=== PATIENT | male | born 1945 | race Caucasian/White ===

== ENCOUNTER 2016-08-26 01:47 | Inpatient (IN) | payer MEDICAID, OTHER ==
[~2016-08-26] VITALS: Ht 167.6 cm; Wt 71.2 kg
[2016-08-26] MEDS ORDERED: DICLOFENAC SODIUM 37.5 MG/ML VIAL IV STA (02:37)
[2016-08-26] MEDS ORDERED: CEFTRIAXONE 1 GM/50 ML (PMX) 50 ML IVPB STA (02:37)
[2016-08-26] MEDS ORDERED: VANCOMYCIN 1 GM (PMX) 250 ML IVPB ONE (03:00)
[2016-08-26] MEDS ORDERED: SOD CHLORIDE 0.9% 1,000 ML IV ONE ×2 (03:00→04:30)
[2016-08-26 03:41] LABS: BASOPHILS % 0.1 % (0.0-2.0); EOSINOPHILS % 0.1 % (0.0-7.0); HEMATOCRIT 34.6 % (42.0-52.0); HEMOGLOBIN 11.9 g/dl (14.0-18.0); LYMPHOCYTES # 0.8 10^3/ul (0.8-2.9); LYMPHOCYTES % 5.6 % (15.0-51.0); MEAN CORPUSCULAR HEMOGLOBIN 30.9 pg (29.0-33.0); MEAN CORPUSCULAR HGB CONC 34.5 g/dl (32.0-37.0); MEAN CORPUSCULAR VOLUME 89.5 fl (82.0-101.0); MONOCYTE # 1.1 10^3/ul (0.3-0.9); MONOCYTES % 7.3 % (0.0-11.0); NEUTROPHILS % 86.9 % (39.0-77.0); PLATELET COUNT 259 10^3/UL (140-440); RED BLOOD COUNT 3.87 10^6/ul (4.70-6.10); RED CELL DISTRIBUTION WIDTH 12.4 % (11.5-14.5); UNCORRECTED WBC 14.9 10^3/ul (4.8-10.8); WHITE BLOOD COUNT 14.9 10^3/ul (4.8-10.8)
[2016-08-26 03:44] LABS: CONDITION 1
[2016-08-26 03:45] VITALS: TEMP 98.3
[2016-08-26 03:45] LABS: ALBUMIN 4.1 g/dl (3.3-4.9); CHLORIDE 101 mmol/L (97-110); POTASSIUM 3.9 mmol/L (3.5-5.1); SODIUM 137 mmol/L (135-144)
[2016-08-26 03:46] LABS: INR 1.07; PARTIAL THROMBOPLASTIN TIME 33.6 Sec (25.0-35.0); PROTIME 13.9 Sec (12.2-14.2); PT RATIO 1.1
[2016-08-26 03:47] LABS: CREATININE 0.51 mg/dl (0.61-1.24)
[2016-08-26 03:48] LABS: ALANINE AMINOTRANSFERASE 23 IU/L (13-69); ALBUMIN/GLOBULIN RATIO 1.32; ALKALINE PHOSPHATASE 126 IU/L (42-121); ANION GAP 18 (8-16); ASPARTATE AMINO TRANSFERASE 18 IU/L (15-46); BILIRUBIN,INDIRECT 0.9 mg/dl (0-1.1); BILIRUBIN,TOTAL 0.9 mg/dl (0.2-1.3); BLOOD UREA NITROGEN 17 mg/dl (7-20); CALCIUM 8.7 mg/dl (8.4-10.2); CARBON DIOXIDE 22 mmol/L (21-31); GLUCOSE 292 mg/dl (70-220); TOTAL PROTEIN 7.2 g/dl (6.1-8.1)
[2016-08-26 04:01] LABS: TROPONIN-I < 0.012 ng/ml (0.00-0.12)
[2016-08-26] MEDS ORDERED: ONDANSETRON 4 MG INJ IV PRN (05:30)
[2016-08-26 05:45] VITALS: BP 157/68; PULSE 80; RESP 19; Ht 167.6 cm; Wt 71.2 kg
--- NOTE | 2016-08-26 06:47 | HP ---
Date/Time of Note Date/Time of Note DATE: 08/26/16 TIME: 06:43 Assessment/Plan VTE Prophylaxis VTE Prophylaxis Intervention: LMWH Assessment/Plan Assessment/Plan 70 yo M with 1. R knee cellulitis septic joint unlikely as no wound 2. DM type 2 uncontrolled 3. Nicotine dependence Tobacco cessation counselling done and will continue to be reinforced throughout hospitalization. PLAN: empiric abx / cultures / Ortho and ID consults Diabetic diet / SSI / resume home regimen if appropriate and tailor therapy while in-house. Further evaluation and treatment will be based on clinical course Full discussion with care team done. All questions Answered Please also see orders. Total time spent on this evaluation >35mins Prophylaxis: lovenox /pepcid HPI/ROS Admit Date/Time Admit Date/Time Aug 26, 2016 at 05:05 Hx of Present Illness PRESENTING COMPLAINT: R knee pain HISTORY OF PRESENTING COMPLAINT: 70 yo M with a hx of DM and chronic tobacco use who presents with R knee pain and swelling.He is at the point where he says he cannot comfortably walk. He denies any wounds to the area and stated that it actually started lower on his leg and started to spread upwards on the skin. He has no fevers or chills and states that he can put his weight on his leg fine without pain, but when he tries to bend the knee in any way, it hurts badly. He has had no trauma to the area. ROS 12 point review if systems was done and pertinent findings are as noted. PMH/Family/Social Past Medical History Medical History: diabetes Family History Significant Family History: diabetes Social History Alcohol Use: none Smoking Status: Current every day smoker Drug Use: none Exam/Review of Systems Vital Signs Vitals Vital Signs Date Time Temp Pulse Resp B/P Pulse Ox O2 Delivery O2 Flow Rate FiO2 08/26/16 03:45 98.3 82 20 152/69 98 Room Air Exam Constitutional: alert, oriented Psych: nl mood/affect Head: atraumatic, normocephalic Eyes: PERRL, No icteric ENMT: mucosa pink and moist Neck: supple Respiratory: clear to auscultation, normal air movement Cardiovascular: regular rate and rhythm, No murmurs/extra sounds Gastrointestinal: bowel sounds, non-tender, soft Genitourinary - Male: other (deffered) Musculoskeletal: joint tenderness (R knee), range of motion (reduced in R knee) , swelling (R knee) Neurological: nl mental status, nl speech, No focal weakness Labs Result Diagram: 08/26/1630408/26/16304 DANIELITO DUKE Aug 26, 2016 06:47
[2016-08-26] MEDS ORDERED: GLUCOSE GEL 15 GRAM TUBE BUCCAL PRN (07:00)
[2016-08-26] MEDS ORDERED: VANCOMYCIN IV PER PHARMACY XX SCH (07:00)
[2016-08-26] MEDS ORDERED: GLUCOSE GEL 15 GRAM TUBE PO PRN ×2 (07:00)
[2016-08-26] MEDS ORDERED: GLUCAGON 1 MG INJ IM PRN (07:00)
[2016-08-26] MEDS ORDERED: DEXTROSE 50% 50 ML SYRINGE IV PRN ×2 (07:00)
[2016-08-26] MEDS: INSULIN GLARGINE [LANtus] 3 ML PEN SC SCH (08:48)
[2016-08-26] MEDS: INSULIN ASPART [NOVOLOG] 3 ML PEN SC SCH ×7 (08:49→21:37)
[2016-08-26 09:27] LABS: ALBUMIN 4.2 g/dl (3.3-4.9)
[2016-08-26 09:29] LABS: BILIRUBIN,INDIRECT 0.7 mg/dl (0-1.1); BILIRUBIN,TOTAL 0.7 mg/dl (0.2-1.3)
[2016-08-26 09:30] LABS: CHOL/HDL RATIO 3.8 RATIO; MAGNESIUM 2.1 mg/dl (1.7-2.5); TOTAL PROTEIN 7.2 g/dl (6.1-8.1); URIC ACID 3.7 mg/dl (3.1-7.9)
[2016-08-26] MEDS ORDERED: KETOROLAC 30 MG INJ IV STA (10:15)
[2016-08-26 10:26] LABS: ADD UMIC NO; URINE BILIRUBIN (Dip) NEGATIVE (NEGATIVE); URINE BLOOD (Dip) NEGATIVE (NEGATIVE); URINE COLOR LT. YELLOW (YELLOW); URINE KETONES (Dip) TRACE (NEGATIVE); URINE LEUKOCYTE ESTERASE (Dip) NEGATIVE (NEGATIVE); URINE NITRITE (Dip) NEGATIVE (NEGATIVE); URINE TOTAL PROTEIN (Dip) NEGATIVE (NEGATIVE); URINE UROBILINOGEN (Dip) 1.0 E.U./dL (0.1-1.0)
[2016-08-26] MEDS ORDERED: traMADol 50 MG TAB PO ONE (10:30)
[2016-08-26] MEDS: VANCOMYCIN 1 GM in NS 250 ML IVPB SCH ×2 (12:09→23:15)
--- NOTE | 2016-08-26 13:46 | CONS ---
DATE OF ADMISSION: 08/26/2016 DATE OF CONSULTATION: 08/26/2016 CHIEF COMPLAINT: Right knee pain. HISTORY OF PRESENT ILLNESS: This is a 70-year-old male with history of type 2 uncontrolled diabetes who is complaining of several day history of right knee swelling and pain. He states that he has h ad increasing redness of his knee. He denies any recent infections, fevers or chills. He denies an y history of trauma. He has been able to ambulate with pain. He has no other complaints. PAST MEDICAL HISTORY: Type 2 diabetes. MEDICATIONS: Patient is unsure of his medications. PAST SURGICAL HISTORY: Denies any previous surgeries. SOCIAL HISTORY: The patient lives with his . He is a current tobacco user. He denies alcohol use. FAMILY HISTORY: Noncontributory. ALLERGIES: NO KNOWN DRUG ALLERGIES. REVIEW OF SYSTEMS: Negative except per HPI. VITAL SIGNS: Temperature 98.3, 152/69, 82 pulse with 20 respiratory rate. RIGHT KNEE: There is an effusion of the right knee. There is cellulitis over the right knee. Ther e are no open wounds. There is no drainage. He has pain with flexion. He has a nontender calf wit h a negative Homans. He has a palpable dorsalis pedis pulse. LABORATORY DATA: White blood cell count 14.9, neutrophils 86%. ESR 44, CRP pending. IMPRESSION: A 70-year-old diabetic male with right knee effusion and cellulitis. PLAN: The patient is currently on ceftriaxone and vancomycin. He is currently stable. At this freddy e CRP levels are pending. We will continue to monitor the patient. There is no indication for a se ptic joint at this time. No surgical intervention is indicated at this point. Dictated By: TRACEE GAMEZ/JENS Conf#: [id number] DID#: [id number]
--- NOTE | 2016-08-26 16:03 | RADRPT ---
PROCEDURE: XR bilateral knees. CLINICAL INDICATION: Knee pain /septic joint TECHNIQUE: AP, PA, lateral and sunrise views are available for review. COMPARISON: None available FINDINGS: Right knee: There is mild to moderate osteoarthrosis involving the right patellofemoral compartment . This is as sociated with joint space narrowing and osteophytosis. There is right prepatellar soft tissue swelli ng. Left knee: There is mild osteoarthrosis involving the left patellofemoral compartment. This is associated with joint osteophytosis. There is otherwise normal mineralization, architecture and alignment. No fractures are identified. No osseous lesions are identified. The soft tissues are unremarkable. IMPRESSION: Moderate osteoarthrosis involving the right patellofemoral compartment Right prepatellar soft tissue swelling Mild osteoarthrosis involving the left patellofemoral compartment. RPTAT: HGDB .Ranjan Spangler MD, MD Date Time Electronically viewed and signed by .Ranjan Spangler MD, on 08/26/2016 16:02 .B/
--- NOTE | 2016-08-26 16:40 | CONS ---
DATE OF ADMISSION: 08/26/2016 DATE OF CONSULTATION: 08/26/2016 TYPE OF CONSULTATION: Infectious disease. REASON FOR CONSULTATION: Antibiotic management. HISTORY OF PRESENT ILLNESS: Valeriy Mendoza is a 70-year-old male with a history of diabe wendi mellitus and chronic tobacco use, who presents to the emergency room with right knee pain and sw elling. Past problems, as noted, include diabetes mellitus and nicotine dependency. On admission h is white count was 14.9, H and H 11.9 and 34.6, platelet count 259,000. BUN and creatinine 17/0.5. Glucose of 292 random. The patient's hemoglobin A1c is 8.0. PAST MEDICAL HISTORY: Operations, none. FAMILY HISTORY: Noncontributory, except for diabetes. ALLERGIES: NONE TO PENICILLIN, SULFA OR FOODS. MEDICATIONS: Per chart. REVIEW OF SYSTEMS: As per HPI. PHYSICAL EXAMINATION: GENERAL: The patient is a well-developed, well-nourished male, alert, responsive, in no ac anahy distress. VITAL SIGNS: Stable. He is afebrile. SKIN: Without generalized rash. HEENT: Within normal limits. NECK: Supple. LYMPH NODES: None palpable. CHEST: Decreased breath sounds at the bases. HEART: Without murmur or gallop. ABDOMEN: Soft, nontender, without organosplenomegaly or masses. EXTREMITIES: He has joint tenderness of the right knee, with decreased range of motion. There is s welling of the right knee as well, with the significant cellulitis. RECTAL AND GENITAL EXAM: Deferred. NEUROLOGIC EVALUATION: No focal neurological abnormalities. IMPRESSION AND PLAN: The patient has cellulitis of the right knee, could have septic arthritis. We started him on vancomycin and ceftriaxone, and he was seen by orthopedics and will be taken to the OR in order to tap the knee, and probably irrigate the knee as well, to rule out septic arthritis. Will continue him on the current antibiotic therapy. Dictated By: JACOB PICHARDO MD, JD/JENS Conf#: [id number] DID#: [id number]
[2016-08-26 20:00] VITALS: BP 148/68; PULSE 89; RESP 20
[2016-08-26] MEDS: morphine 2 MG INJ IV PRN (20:49)
--- NOTE | 2016-08-26 21:30 | RADRPT ---
PROCEDURE: US DVT. CLINICAL INDICATION: Right lower extremity pain and swelling. TECHNIQUE: Multiple longitudinal and transverse images of the right lower extremity veins were obt ained with long scale and color Doppler imaging. 2D grayscale measurements with compression, color Doppler flow, and augmentation was performed. The calf veins were interrogated as well. COMPARISON: No prior studies are available for comparison. FINDINGS: The right common femoral, femoral and popliteal veins are normally compressible throughout. Color flow demonstrates normal filling of the vessel. Normal venous waveforms are visualized and there is normal response to augmentation. The calf veins are visualized and are unremarkable. IMPRESSION: 1. No evidence of a deep vein thrombosis involving the right lower extremity. RPTAT: HLDM .Amish Cam MD, MD Date Time Electronically viewed and signed by .Amish Cam MD, on 08/26/2016 21:30 .M/
[2016-08-27] MEDS: ACCUCHECK XX SCH (02:00)
[2016-08-27 06:59] LABS: BASOPHILS % 0.1 % (0.0-2.0); EOSINOPHILS % 0.1 % (0.0-7.0); HEMATOCRIT 31.4 % (42.0-52.0); HEMOGLOBIN 10.9 g/dl (14.0-18.0); LYMPHOCYTES # 0.7 10^3/ul (0.8-2.9); LYMPHOCYTES % 4.8 % (15.0-51.0); MEAN CORPUSCULAR HEMOGLOBIN 31.1 pg (29.0-33.0); MEAN CORPUSCULAR HGB CONC 34.6 g/dl (32.0-37.0); MEAN PLATELET VOLUME 7.5 fl (7.4-10.4); MONOCYTE # 1.3 10^3/ul (0.3-0.9); MONOCYTES % 9.2 % (0.0-11.0); NEUTROPHIL # 11.8 10^3/ul (1.6-7.5); NEUTROPHILS % 85.8 % (39.0-77.0); PLATELET COUNT 237 10^3/UL (140-440); RED BLOOD COUNT 3.49 10^6/ul (4.70-6.10); RED CELL DISTRIBUTION WIDTH 12.5 % (11.5-14.5); UNCORRECTED WBC 13.7 10^3/ul (4.8-10.8); WHITE BLOOD COUNT 13.7 10^3/ul (4.8-10.8)
[2016-08-27 07:09] LABS: POTASSIUM 3.7 mmol/L (3.5-5.1)
[2016-08-27 07:11] LABS: CREATININE 0.47 mg/dl (0.61-1.24)
[2016-08-27 07:12] LABS: CALCIUM 8.3 mg/dl (8.4-10.2)
[2016-08-27 07:14] LABS: IRON 16 ug/dl (35-150)
[2016-08-27 07:18] LABS: CONDITION 1
[2016-08-27 07:23] LABS: TOTAL IRON BINDING CAPACITY 265 ug/dl (241-421)
[2016-08-27 07:32] VITALS: BP 153/67; RESP 18
[2016-08-27] MEDS: INSULIN ASPART [NOVOLOG] 3 ML PEN SC SCH ×6 (08:14→21:00)
[2016-08-27] MEDS: INSULIN GLARGINE [LANtus] 3 ML PEN SC SCH (08:16)
[2016-08-27] MEDS: morphine 2 MG INJ IV PRN ×2 (08:17→19:00)
[2016-08-27] MEDS: VANCOMYCIN 1 GM in NS 250 ML IVPB SCH (12:09)
[2016-08-27] MEDS: SOD FERRIC GLUC COMPLX 125 MG in SOD CHLORIDE 0.9% 100 ML IVPB SCH (14:20)
[2016-08-27] MEDS ORDERED: LEVOFLOXACIN 750 MG TABLET ONE (15:45)
--- NOTE | 2016-08-27 16:54 | CONS ---
Date/Time of Note Date/Time of Note DATE: 08/27/16 TIME: 16:39 Assessment/Plan Assessment/Plan Chief Complaint/Hosp Course ID PROGRESS NOTE TOTAL ABX DAY # : 24H INTERVAL SUMMARY * Stable overnight - still with right knee pain * (-)DVT * X-ray IMPRESSION: Moderate osteoarthrosis involving the right patellofemoral compartment Right prepatellar soft tissue swelling Mild osteoarthrosis involving the left patellofemoral compartment. PHYSICAL EXAMINATION: GENERAL: 58 yo M HEENT: Unremarkable NECK: Supple, trachea midline. CHEST: Rise symmetrical. Breath sounds diminished to bases. HEART: Pulse RRR ABDOMEN: Soft, bowel tones present. EXTREMITIES: Right knee with edema/erythema/warm to touch SKIN: BLEXT vitiligo changes, hyperpigmentation bilateral knees acanthosis nigricans ID ASSESSMENT: 70 yo M 1. Acute R-Knee pain w/edema/erythema, x 3-4 days, denies trauma, skin intact = > Dx R knee cellulitis, w/effusion * DDx Pre-patellar bursitis w/Mild osteoarthrosis involving the left patellofemoral compartment. 2. SIRS w/low grade temps, leukocytosis, elevated CRP 7.7, ESR 44 due to #2 3. DM type 2 uncontrolled w/A1c 8% w/complication of 4. Nicotine dependence= (+)Tobacco CURRENT ABX: Vanco IV + Ceftriaxone ID RECOMMENDATIONS/PLAN: Seen by Ortho -> tap was considered; however appears no need for tap. Continue current ABX and await clinical improvement -> when Leukocytosis resolves, and knee improves will consider PO ABX Switch Tobacco cessation strongly advocated Check MRSA Nares screen . Problems: Consultation Date/Type/Reason Admit Date/Time Aug 26, 2016 at 05:05 Initial Consult Date Exam/Review of Systems Vital Signs Vitals Vital Signs Date Time Temp Pulse Resp B/P Pulse Ox O2 Delivery O2 Flow Rate FiO2 08/27/16 07:32 98.6 88 18 153/67 96 08/26/16 20:00 Room Air Intake and Output 08/26/16 08/26/16 08/27/16 15:00 23:00 07:00 Intake Total 250 ml 425 ml 610 ml Balance 250 ml 425 ml 610 ml Results Result Diagram: 08/27/16 0449 08/27/16 0449 Results 24 hrs Laboratory Tests Test 08/26/16 16:47 08/26/16 21:33 08/27/16 02:55 08/27/16 04:49 Bedside Glucose 151 208 194 Anion Gap 17 H Basophils # 0.0 Basophils % 0.1 Blood Urea Nitrogen 10 Calcium Level 8.3 L Carbon Dioxide Level 21 Chloride Level 100 Creatinine 0.47 L Eosinophils # 0.0 Eosinophils % 0.1 Ferritin 232.0 Glucose Level 184 # Hematocrit 31.4 L Hemoglobin 10.9 L Iron Level 16 L Lymphocytes # 0.7 L Lymphocytes % 4.8 L Mean Corpuscular Hemoglobin 31.1 Mean Corpuscular Hemoglobin Concent 34.6 Mean Corpuscular Volume 90.0 Mean Platelet Volume 7.5 Monocytes # 1.3 H Monocytes % 9.2 Neutrophils # 11.8 H Neutrophils % 85.8 H Nucleated Red Blood Cells # 0.0 Nucleated Red Blood Cells % 0.0 Percent Iron Saturation 6 L Platelet Count 237 Potassium Level 3.7 Red Blood Count 3.49 L Red Cell Distribution Width 12.5 Sodium Level 134 L Total Iron Binding Capacity 265 White Blood Count 13.7 H Test 08/27/16 07:47 08/27/16 12:02 08/27/16 16:20 Bedside Glucose 179 202 186 Medications Medications Current Medications Insulin Glargine (Lantus) 15 unit QAM SC Last administered on 08/27/16t 08:16; Admin Dose 15 UNIT; Start 08/26/16 at 09:00 Diagnostic Test (Pha) (Accucheck) 1 ea 02 XX ; Start 08/27/16 at 02:00 Miscellaneous Information 1 ea NOTE XX ; Start 08/26/16 at 07:00 Glucose (Glutose) 15 gm Q15M PRN PO DECREASED GLUCOSE; Start 08/26/16 at 07:00 Glucose (Glutose) 22.5 gm Q15M PRN PO DECREASED GLUCOSE; Start 08/26/16 at 07: 00 Dextrose (D50w Syringe) 25 ml Q15M PRN IV DECREASED GLUCOSE; Start 08/26/16 at 07:00 Dextrose (D50w Syringe) 50 ml Q15M PRN IV DECREASED GLUCOSE; Start 08/26/16 at 07:00 Glucagon (Glucagen) 1 mg Q15M PRN IM DECREASED GLUCOSE; Start 08/26/16 at 07: 00 Glucose 15 gm 15 gm Q15M PRN BUCCAL DECREASED GLUCOSE; Start 08/26/16 at 07:00 Vancomycin HCl (Vancocin) 250 ml @ 125 mls/hr Q12H IVPB Last administered on 12:09; Admin Dose 125 MLS/HR; Start 08/26/16 at 11:00 Morphine Sulfate 2 mg 2 mg Q4H PRN IV 8-10 Pain level Last administered on 08:17; Admin Dose 2 MG; Start 08/26/16 at 20:30 Ferric Sodium Gluconate Complex/ Sodium Chloride (Ferrlecit/NS) 110 ml @ 100 mls/hr Q24H IVPB Last administered on 08/27/16 14:20; Admin Dose 100 MLS/HR; Start 08/27/16 at 12:30; Stop 08/29/16 at 13:35 Lisinopril (Zestril) 5 mg DAILY PO ; Start 08/28/16 at 09:00 Enoxaparin Sodium (Lovenox) 40 mg DAILY SC ; Start 08/28/16 at 09:00 Famotidine (Pepcid) 20 mg BID PO ; Start 08/27/16 at 21:00 Miscellaneous Information (*Rx Drug Level Order Reminder*) VANCO TROUGH @ 2, 200 ON... ONCE ONCE XX ; Start 08/27/16 at 22:00; Stop 08/27/16 at 22:01 JOAN MEDINA NP Aug 27, 2016 16:49
[2016-08-27] MEDS: CEFTRIAXONE 1 GM/50 ML (PMX) 50 ML IVPB SCH (17:26)
--- NOTE | 2016-08-27 17:31 | QN ---
Documentation Job number: [id number] Comment Progress notes done. For unclear reasons, this is not showing up in [facility]. Medical records aware. OXANA GARCIA NP Aug 27, 2016 17:31
--- NOTE | 2016-08-27 18:10 | PN ---
DATE: 08/27/2016 TIME OF EVALUATION: 1210. SUBJECTIVE DATA: Complaints of right knee pain. Blood sugars slightly on the higher side. OBJECTIVE DATA: VITAL SIGNS: Temperature 98.6, pulse rate 80, respiratory rate 18, blood pressure 153/66, oxygen saturation 96% on room air. GENERAL: This is a well-built male sitting in a chair in no apparent distress. HEENT: Head normocephalic and atraumatic. Eyes: Anicteric sclerae. Conjunctivae clear. ENT: Nasal septum is midline. Oral mucosa is moist. NECK: Supple. No JVD noticed. RESPIRATORY: Bilaterally clear to auscultation. No adventitious breath sounds heard. No use of accessory muscles of respiration. CARDIAC: Regular rate and rhythm. No murmurs heard. ABDOMEN: Soft, nontender and nondistended. Bowel sounds positive in all 4 quadrants. GENITOURINARY: Deferred. EXTREMITIES: Right knee: Area of erythema with tenderness to touch. Bilateral lower extremity: Trace pedal pretibial and pedal edema. Peripheral pulses palpable. NEUROLOGIC: The patient is awake, alert and oriented. Cranial nerves are grossly intact. LABORATORY AND DIAGNOSTIC DATA: WBC 13.7, hemoglobin 10.9, hematocrit 31.4, platelet count 237. Sodium 134, potassium 3.7, chloride 100, carbon dioxide 20 , anion gap 17, BUN 10, creatinine 0.47, glucose 184, calcium 8.3. Iron 16, TIBC 265, iron saturation 14 to 32. ASSESSMENT AND PLAN: 1. Right knee cellulitis with possible underlying effusion within right knee joint. Continue antibiotics as per infectious diseases. Status post evaluation by orthopedic surgery. No surgical intervention as per orthopedic surgery. 2. Type 2 diabetes mellitus, uncontrolled. Hemoglobin A1c 8.3. Currently on sliding scale insulin along with basal insulin. Blood sugars fairly well controlled. 3. Nicotine use. Cessation advised. 4. Essential hypertension. Will start the patient on GAGAN inhibitors since the patient has underlying diabetes. 5. Normocytic normochromic anemia. Underlying iron deficiency. Will start the patient on iron supplements. 6. Fluid, electrolytes and nutrition. Continue carbohydrate controlled diet. 7. Deep venous thrombosis prophylaxis. Will start the patient on subcutaneous Lovenox. 8. Gastrointestinal prophylaxis. Will start the patient on histamine 2 receptor blockers. PLAN: 1. Continue on analgesics. 2. Continue blood sugar control. 3. Start iron supplements and started antihypertensives. Case discussed with Dr. Bergeron. OXANA BERGERON MD, AM/JENS Conf#: [id number] DID#: [id number] [id number]
--- NOTE | 2016-08-27 18:11 | PN ---
DATE: SUBJECTIVE: The patient is doing well. His pain is controlled. He denies any fevers or chills. Onur ness has no complaints today. OBJECTIVE: Right knee: There is cellulitis over the right knee, which is decreasing. He has minim al effusion. There is no active drainage. There is no fluctuance. VITAL SIGNS: 98.6, 88 pulse, 153/67, respiratory rate of 18. LABORATORY DATA: White blood cell count is 13.7, down from 14.9. ESR 44. CRP is 7. IMPRESSION: A 70-year-old male with history of uncontrolled diabetes and right knee cellulitis, imp roving with IV antibiotics. PLAN: The patient will continue to receive IV vancomycin and ceftriaxone. His physical examination has improved, as have his laboratory data. His pain is controlled. He has stable vital signs. He does not require surgical intervention. Dictated By: TRACEE GAMEZ/JENS Conf#: [id number] DID#: [id number]
[2016-08-27 20:18] VITALS: BP 113/53; RESP 24
[2016-08-27] MEDS: FAMOTIDINE 20 MG TAB PO SCH (20:44)
[2016-08-28] MEDS: VANCOMYCIN 1 GM in NS 250 ML IVPB SCH ×3 (00:59→19:13)
[2016-08-28] MEDS: ACCUCHECK XX SCH (02:00)
[2016-08-28 06:14] LABS: BASOPHILS % 0.1 % (0.0-2.0); EOSINOPHILS # 0.1 10^3/ul (0.0-0.5); EOSINOPHILS % 0.9 % (0.0-7.0); HEMATOCRIT 31.3 % (42.0-52.0); HEMOGLOBIN 10.8 g/dl (14.0-18.0); LYMPHOCYTES # 0.9 10^3/ul (0.8-2.9); LYMPHOCYTES % 8.7 % (15.0-51.0); MEAN CORPUSCULAR HEMOGLOBIN 31.3 pg (29.0-33.0); MEAN CORPUSCULAR HGB CONC 34.6 g/dl (32.0-37.0); MEAN CORPUSCULAR VOLUME 90.4 fl (82.0-101.0); MEAN PLATELET VOLUME 7.2 fl (7.4-10.4); MONOCYTE # 1.1 10^3/ul (0.3-0.9); MONOCYTES % 10.5 % (0.0-11.0); NEUTROPHIL # 8.4 10^3/ul (1.6-7.5); NEUTROPHILS % 79.8 % (39.0-77.0); PLATELET COUNT 257 10^3/UL (140-440); RED BLOOD COUNT 3.46 10^6/ul (4.70-6.10); RED CELL DISTRIBUTION WIDTH 12.1 % (11.5-14.5); UNCORRECTED WBC 10.6 10^3/ul (4.8-10.8); WHITE BLOOD COUNT 10.6 10^3/ul (4.8-10.8)
[2016-08-28 06:26] LABS: CONDITION 1
[2016-08-28 06:38] LABS: POTASSIUM 3.5 mmol/L (3.5-5.1)
[2016-08-28 06:40] LABS: CREATININE 0.49 mg/dl (0.61-1.24)
[2016-08-28 06:41] LABS: CALCIUM 8.1 mg/dl (8.4-10.2)
[2016-08-28 07:01] LABS: PHOSPHORUS 3.8 mg/dl (2.5-4.9)
[2016-08-28 08:03] VITALS: BP 135/75; RESP 16
[2016-08-28] MEDS: LISINOPRIL 5 MG TAB PO SCH (08:30)
[2016-08-28] MEDS: FAMOTIDINE 20 MG TAB PO SCH ×2 (08:30→20:52)
[2016-08-28] MEDS: ENOXAPARIN 40 MG/0.4 ML SYG SC SCH (08:32)
[2016-08-28] MEDS: INSULIN ASPART [NOVOLOG] 3 ML PEN SC SCH ×7 (08:33→20:55)
[2016-08-28] MEDS: INSULIN GLARGINE [LANtus] 3 ML PEN SC SCH (08:33)
[2016-08-28] MEDS: SOD FERRIC GLUC COMPLX 125 MG in SOD CHLORIDE 0.9% 100 ML IVPB SCH (13:11)
--- NOTE | 2016-08-28 15:26 | PN ---
Date/Time of Note Date/Time of Note DATE: 08/28/16 TIME: 15:23 Assessment/Plan VTE Prophylaxis VTE Prophylaxis Intervention: LMWH Lines/Catheters IV Catheter Type (from Nrs): Saline Lock Urinary Cath still in place: No Assessment/Plan Chief Complaint/Hosp Course Assessment and plan 1. right knee cellulitis with suspect underlying effusion within the right knee. Continue antibiotics per ID recommendations. Patient seen by orthopedic surgeon. No plan for orthopedic intervention at this time. Continue supportive care. 2. Type 2 diabetes. Patient noted with A1c of 8.3. Continue on insulin regimen. Will adjust as needed 3. History of nicotine use. Nicotine cessation advised 4. Essential hypertension. Continue on anti-hypertensives and adjust as needed 5. anemia. Patient noted with iron deficiency. Continue iron supplement DVT prophylaxis: Lovenox GERD prophylaxis: H2 teresa Disposition and plan: Continue antibiotics. Discharge him medically stable and cleared by consultants Discussed plan of care with Dr. Gallo Problems: Subjective 24 Hr Interval Summary Free Text/Dictation Still reports having some right knee pain. Does have some difficulty with ambulation Exam/Review of Systems Vital Signs Vitals Vital Signs Date Time Temp Pulse Resp B/P Pulse Ox O2 Delivery O2 Flow Rate FiO2 08/28/16 08:03 98.7 83 16 135/75 96 08/26/16 20:00 Room Air Intake and Output 08/27/16 08/27/16 08/28/16 15:00 23:00 07:00 Intake Total 250 ml 690 ml 470 ml Balance 250 ml 690 ml 470 ml Exam General: No acute signs or symptoms of distress Eyes: pupils equal round, Anicteric sclera Neck: Supple nontender, no JVD Cardiac: S1, S2 auscultated, regular rhythm and rate Pulmonary: No coarse rhonchi or breathing auscultated GI: Abdomen soft nontender nondistended, bowel sounds active Extremities: Swollen right knee. Little erythematous Skin: Clean dry and intact Neurologic: Alert to person place and time and situation Results Result Diagram: 08/28/16 0450 08/28/16 0500 Results 24 hrs Laboratory Tests Test 08/27/16 16:20 08/27/16 20:42 08/27/16 21:59 08/28/16 04:50 Bedside Glucose 186 172 Vancomycin Level Trough 5.2 L Basophils # 0.0 Basophils % 0.1 Blood Morphology Comment Eosinophils # 0.1 Eosinophils % 0.9 Hematocrit 31.3 L Hemoglobin 10.8 L Lymphocytes # 0.9 Lymphocytes % 8.7 L Magnesium Level 2.0 Mean Corpuscular Hemoglobin 31.3 Mean Corpuscular Hemoglobin Concent 34.6 Mean Corpuscular Volume 90.4 Mean Platelet Volume 7.2 L Monocytes # 1.1 H Monocytes % 10.5 Neutrophils # 8.4 H Neutrophils % 79.8 H Nucleated Red Blood Cells # 0.0 Nucleated Red Blood Cells % 0.0 Phosphorus Level 3.8 Platelet Count 257 Red Blood Count 3.46 L Red Cell Distribution Width 12.1 White Blood Count 10.6 # Test 08/28/16 05:00 08/28/16 07:10 08/28/16 11:14 Anion Gap 19 H Blood Urea Nitrogen 9 Calcium Level 8.1 L Carbon Dioxide Level 21 Chloride Level 98 Creatinine 0.49 L Glucose Level 167 Potassium Level 3.5 Sodium Level 134 L Bedside Glucose 277 H 151 Medications Medications Current Medications Insulin Glargine (Lantus) 15 unit QAM SC Last administered on 08/28/16 08:33; Admin Dose 15 UNIT; Start 08/26/16 at 09:00 Diagnostic Test (Pha) (Accucheck) 1 ea 02 XX ; Start 08/27/16 at 02:00 Miscellaneous Information 1 ea NOTE XX ; Start 08/26/16 at 07:00 Glucose (Glutose) 15 gm Q15M PRN PO DECREASED GLUCOSE; Start 08/26/16 at 07:00 Glucose (Glutose) 22.5 gm Q15M PRN PO DECREASED GLUCOSE; Start 08/26/16 at 07: 00 Dextrose (D50w Syringe) 25 ml Q15M PRN IV DECREASED GLUCOSE; Start 08/26/16 at 07:00 Dextrose (D50w Syringe) 50 ml Q15M PRN IV DECREASED GLUCOSE; Start 08/26/16 at 07:00 Glucagon (Glucagen) 1 mg Q15M PRN IM DECREASED GLUCOSE; Start 08/26/16 at 07: 00 Glucose (Glutose) 15 gm Q15M PRN BUCCAL DECREASED GLUCOSE; Start 08/26/16 at 07:00 Morphine Sulfate 2 mg 2 mg Q4H PRN IV 8-10 Pain level Last administered on 19:00; Admin Dose 2 MG; Start 08/26/16 at 20:30 Ferric Sodium Gluconate Complex/ Sodium Chloride (Ferrlecit/NS) 110 ml @ 100 mls/hr Q24H IVPB Last administered on 08/28/16 13:11; Admin Dose 100 MLS/HR; Start 08/27/16 at 12:30; Stop 08/29/16 at 13:35 Lisinopril (Zestril) 5 mg DAILY PO Last administered on 08/28/16 08:30; Admin Dose 5 MG; Start 08/28/16 at 09:00 Enoxaparin Sodium (Lovenox) 40 mg DAILY SC Last administered on 08/28/16 08:32 ; Admin Dose 40 MG; Start 08/28/16 at 09:00 Famotidine 20 mg 20 mg BID PO Last administered on 08/28/16 08:30; Admin Dose 20 MG; Start 08/27/16 at 21:00 Ceftriaxone Sodium 50 ml @ 100 mls/hr Q24H IVPB Last administered on 08/27/16 17:26; Admin Dose 100 MLS/HR; Start 08/27/16 at 17:00 Vancomycin HCl (Vancocin) 250 ml @ 125 mls/hr Q8H IVPB Last administered on 08:40; Admin Dose 125 MLS/HR; Start 08/28/16 at 01:00 Miscellaneous Information (*Rx Drug Level Order Reminder*) VANCO TROUGH @ 0, 800 ON... ONCE ONCE XX ; Start 08/29/16 at 08:00; Stop 08/29/16 at 08:01 YARELIS ABRAMS Aug 28, 2016 15:25 YARELIS ABRAMS Aug 28, 2016 15:25
--- NOTE | 2016-08-28 16:53 | CONS ---
Date/Time of Note Date/Time of Note DATE: 08/28/16 TIME: 16:14 Assessment/Plan Assessment/Plan Chief Complaint/Hosp Course ID PROGRESS NOTE TOTAL ABX DAY #3 : Vanco IV + Ceftriaxone 24H INTERVAL SUMMARY * Stable overnight - knee pain improved * (-)DVT * X-ray IMPRESSION: Moderate osteoarthrosis involving the right patellofemoral compartment Right prepatellar soft tissue swelling Mild osteoarthrosis involving the left patellofemoral compartment. PHYSICAL EXAMINATION: GENERAL: 58 yo M HEENT: Unremarkable NECK: Supple, trachea midline. CHEST: Rise symmetrical. Breath sounds diminished to bases. HEART: Pulse RRR ABDOMEN: Soft, bowel tones present. EXTREMITIES: Right knee with edema/erythema/warm to touch SKIN: BLEXT vitiligo changes, hyperpigmentation bilateral knees acanthosis nigricans ID ASSESSMENT: 70 yo M 1. Acute R-Knee pain w/edema/erythema, x 3-4 days, denies trauma, skin intact = > Dx R knee cellulitis, w/effusion * DDx Pre-patellar bursitis w/Mild osteoarthrosis involving the left patellofemoral compartment. 2. SIRS w/low grade temps, leukocytosis, elevated CRP 7.7, ESR 44 due to #2 3. DM type 2 uncontrolled w/A1c 8% w/complication of 4. Nicotine dependence= (+)Tobacco CURRENT ABX: Vanco IV + Ceftriaxone ID RECOMMENDATIONS/PLAN: Seen by Ortho -> tap was considered; however appears no need for tap = noted increase risk of introducing bacterial into synovial joint w/unnecessary knee tap Right knee still with significant erythema and warmth == needs IV ABX Continue current ABX and await clinical improvement -> consider PICC LINE with Vanco IV x 14 days + Ceftriaxone or SNF Tobacco cessation strongly advocated . Problems: Consultation Date/Type/Reason Admit Date/Time Aug 26, 2016 at 05:05 Exam/Review of Systems Vital Signs Vitals Vital Signs Date Time Temp Pulse Resp B/P Pulse Ox O2 Delivery O2 Flow Rate FiO2 08/28/16 08:03 98.7 83 16 135/75 96 08/26/16 20:00 Room Air Intake and Output 08/27/16 08/27/16 08/28/16 15:00 23:00 07:00 Intake Total 250 ml 690 ml 470 ml Balance 250 ml 690 ml 470 ml Results Result Diagram: 08/28/16 0450 08/28/16 0500 Results 24 hrs Laboratory Tests Test 08/27/16 16:20 08/27/16 20:42 08/27/16 21:59 08/28/16 04:50 Bedside Glucose 186 172 Vancomycin Level Trough 5.2 L Basophils # 0.0 Basophils % 0.1 Blood Morphology Comment Eosinophils # 0.1 Eosinophils % 0.9 Hematocrit 31.3 L Hemoglobin 10.8 L Lymphocytes # 0.9 Lymphocytes % 8.7 L Magnesium Level 2.0 Mean Corpuscular Hemoglobin 31.3 Mean Corpuscular Hemoglobin Concent 34.6 Mean Corpuscular Volume 90.4 Mean Platelet Volume 7.2 L Monocytes # 1.1 H Monocytes % 10.5 Neutrophils # 8.4 H Neutrophils % 79.8 H Nucleated Red Blood Cells # 0.0 Nucleated Red Blood Cells % 0.0 Phosphorus Level 3.8 Platelet Count 257 Red Blood Count 3.46 L Red Cell Distribution Width 12.1 White Blood Count 10.6 # Test 08/28/16 05:00 08/28/16 07:10 08/28/16 11:14 Anion Gap 19 H Blood Urea Nitrogen 9 Calcium Level 8.1 L Carbon Dioxide Level 21 Chloride Level 98 Creatinine 0.49 L Glucose Level 167 Potassium Level 3.5 Sodium Level 134 L Bedside Glucose 277 H 151 Medications Medications Current Medications Insulin Glargine (Lantus) 15 unit QAM SC Last administered on 08/28/16t 08:33; Admin Dose 15 UNIT; Start 08/26/16 at 09:00 Diagnostic Test (Pha) (Accucheck) 1 ea 02 XX ; Start 08/27/16 at 02:00 Miscellaneous Information 1 ea NOTE XX ; Start 08/26/16 at 07:00 Glucose (Glutose) 15 gm Q15M PRN PO DECREASED GLUCOSE; Start 08/26/16 at 07:00 Glucose (Glutose) 22.5 gm Q15M PRN PO DECREASED GLUCOSE; Start 08/26/16 at 07: 00 Dextrose (D50w Syringe) 25 ml Q15M PRN IV DECREASED GLUCOSE; Start 08/26/16 at 07:00 Dextrose (D50w Syringe) 50 ml Q15M PRN IV DECREASED GLUCOSE; Start 08/26/16 at 07:00 Glucagon (Glucagen) 1 mg Q15M PRN IM DECREASED GLUCOSE; Start 08/26/16 at 07: 00 Glucose (Glutose) 15 gm Q15M PRN BUCCAL DECREASED GLUCOSE; Start 08/26/16 at 07:00 Morphine Sulfate 2 mg 2 mg Q4H PRN IV 8-10 Pain level Last administered on 19:00; Admin Dose 2 MG; Start 08/26/16 at 20:30 Ferric Sodium Gluconate Complex/ Sodium Chloride (Ferrlecit/NS) 110 ml @ 100 mls/hr Q24H IVPB Last administered on 08/28/16 13:11; Admin Dose 100 MLS/HR; Start 08/27/16 at 12:30; Stop 08/29/16 at 13:35 Lisinopril (Zestril) 5 mg DAILY PO Last administered on 08/28/16 08:30; Admin Dose 5 MG; Start 08/28/16 at 09:00 Enoxaparin Sodium (Lovenox) 40 mg DAILY SC Last administered on 08/28/16 08:32 ; Admin Dose 40 MG; Start 08/28/16 at 09:00 Famotidine 20 mg 20 mg BID PO Last administered on 08/28/16 08:30; Admin Dose 20 MG; Start 08/27/16 at 21:00 Ceftriaxone Sodium 50 ml @ 100 mls/hr Q24H IVPB Last administered on 08/27/16 17:26; Admin Dose 100 MLS/HR; Start 08/27/16 at 17:00 Vancomycin HCl (Vancocin) 250 ml @ 125 mls/hr Q8H IVPB Last administered on 08:40; Admin Dose 125 MLS/HR; Start 08/28/16 at 01:00 Miscellaneous Information (*Rx Drug Level Order Reminder*) VANCO TROUGH @ 0, 800 ON... ONCE ONCE XX ; Start 08/29/16 at 08:00; Stop 08/29/16 at 08:01 JOAN MEDINA NP Aug 28, 2016 16:24
[2016-08-28] MEDS: CEFTRIAXONE 1 GM/50 ML (PMX) 50 ML IVPB SCH (18:06)
[2016-08-28 21:13] VITALS: BP 135/64; RESP 20
[2016-08-28 23:30] VITALS: BP 131/70; PULSE 85; RESP 18
[2016-08-29] MEDS: VANCOMYCIN 1 GM in NS 250 ML IVPB SCH ×2 (00:53→08:54)
[2016-08-29] MEDS: ACCUCHECK XX SCH (02:00)
[2016-08-29 05:24] LABS: BASOPHILS % 0.4 % (0.0-2.0); EOSINOPHILS # 0.2 10^3/ul (0.0-0.5); EOSINOPHILS % 2.5 % (0.0-7.0); HEMATOCRIT 30.4 % (42.0-52.0); HEMOGLOBIN 10.6 g/dl (14.0-18.0); LYMPHOCYTES # 0.8 10^3/ul (0.8-2.9); LYMPHOCYTES % 9.7 % (15.0-51.0); MEAN CORPUSCULAR HEMOGLOBIN 31.3 pg (29.0-33.0); MEAN CORPUSCULAR VOLUME 89.5 fl (82.0-101.0); MEAN PLATELET VOLUME 6.6 fl (7.4-10.4); MONOCYTES % 12.4 % (0.0-11.0); NEUTROPHIL # 5.9 10^3/ul (1.6-7.5); PLATELET COUNT 292 10^3/UL (140-440); RED CELL DISTRIBUTION WIDTH 12.3 % (11.5-14.5); UNCORRECTED WBC 7.9 10^3/ul (4.8-10.8); WHITE BLOOD COUNT 7.9 10^3/ul (4.8-10.8)
[2016-08-29 05:27] LABS: POTASSIUM 3.6 mmol/L (3.5-5.1)
[2016-08-29 05:29] LABS: CREATININE 0.51 mg/dl (0.61-1.24)
[2016-08-29 05:30] LABS: CALCIUM 7.9 mg/dl (8.4-10.2)
[2016-08-29 05:31] LABS: CONDITION 1
[2016-08-29 07:56] VITALS: BP 139/61; RESP 20
[2016-08-29] MEDS: FAMOTIDINE 20 MG TAB PO SCH ×2 (08:41→20:45)
[2016-08-29] MEDS: LISINOPRIL 5 MG TAB PO SCH (08:41)
[2016-08-29] MEDS: ENOXAPARIN 40 MG/0.4 ML SYG SC SCH (08:42)
[2016-08-29] MEDS: INSULIN GLARGINE [LANtus] 3 ML PEN SC SCH (08:42)
[2016-08-29] MEDS: INSULIN ASPART [NOVOLOG] 3 ML PEN SC SCH ×7 (08:43→20:44)
[2016-08-29] MEDS ORDERED: LIDOCAINE 1% (MDV) 20 ML INJ SC ONE (12:00)
[2016-08-29] MEDS ORDERED: VANC1.257 IV (12:06)
[2016-08-29] MEDS ORDERED: LANT3I SC (12:06)
[2016-08-29] MEDS ORDERED: CEFT1FRO2 IV (12:06)
[2016-08-29] MEDS ORDERED: FER325 PO (12:06)
[2016-08-29] MEDS ORDERED: LISI-313 PO (12:06)
[2016-08-29] MEDS ORDERED: NOVO3I SC (12:06)
--- NOTE | 2016-08-29 12:40 | PN ---
DATE: 08/29/2016 SUBJECTIVE: No changes overnight per report. The patient is awake, lying comfortably in bed. No f all. WBC 7.9, no shift. BUN 9, creatinine 0.51. ANTIMICROBIALS: 1. Vancomycin. 2. Rocephin. PHYSICAL EXAMINATION: GENERAL: Well-developed, fragile, elderly man who is lying comfortably in bed. HEENT: Head atraumatic, normocephalic. Sclerae anicteric. Buccal mucosa pink. NECK: Supple, trachea midline. CHEST: Rise symmetrical. Breath sounds clear. HEART: S1, S2. ABDOMEN: Soft, bowel tones present. EXTREMITIES: With right knee swelling, erythema. ASSESSMENT: 1. Right knee cellulitis with effusion, questionable prepatellar bursitis, improving on current ant ibiotics. 2. Diabetes. 3. Systemic inflammatory response syndrome secondary to above. 4. Anemia. PLAN: The patient remains stable, improving on current antibiotics. Ortho on case, no surgical int ervention recommended. Dictated By: JIMI BARLOW X RAY CONTROL EQUIPMENT REPAIRER for JACOB PATRICIA/JENS Conf#: [id number] DID#: [id number]
[2016-08-29] MEDS: SOD FERRIC GLUC COMPLX 125 MG in SOD CHLORIDE 0.9% 100 ML IVPB SCH (13:15)
--- NOTE | 2016-08-29 14:01 | PDOCDIS ---
Discharge Instructions DIAGNOSIS Discharge Diagnosis: 1. Right knee cellulitis with underlying effusion within the right knee 2. CONDITION Patient Condition: Stable HOME CARE INSTRUCTIONS: Special Diet: 1800 ADAYour diet recommendation is: carbohydrate controlled FOLLOW UP/APPOINTMENTS Appointments 1. Follow-up with your primary care provider within a week OTHER ORDERS: Other Orders: Call your primary care provider. Worsening right knee pain or swelling YARELIS ABRAMS Aug 29, 2016 14:00
[2016-08-29] MEDS: CEFTRIAXONE 1 GM/50 ML (PMX) 50 ML IVPB SCH (16:07)
--- NOTE | 2016-08-29 17:27 | DS ---
DATE OF ADMISSION: 08/26/2016 DATE OF DISCHARGE: 08/29/2016 CONSULTANTS: 1. Avtar Rubi MD 2. Nurse practitioner, Kenia Rosales 3. Nurse practitioner, Cristo Arceo 4. Zeke Bejarano MD DISCHARGE DIAGNOSES: 1. Right knee cellulitis with suspect underlying effusion within the right knee. 2. Type 2 diabetes. 3. History of nicotine use. 4. Essential hypertension. 5. Iron deficiency anemia. HOSPITAL COURSE: This is a 71-year-old male with history of diabetes and chronic drug abuse who cam e to [facility] due to reports of right knee swelling and pain. The patient did h ave imaging of the right knee that did show moderate osteoarthrosis involving the right patellofemor al compartment and right patellar soft tissue swelling. There was also seen mild osteoarthrosis inv olving the left patellofemoral compartment. The patient was seen by orthopedic surgeon as well as i nfectious disease doctor. Per orthopedic surgeon, the patient did not have any indication of septic joint and therefore did not need any surgical intervention. He was optimized on antibiotics by inf ectious disease specialist. He still had some swelling and erythema on the right knee, but it did s lowly subside. After discussion with infectious disease showroom consultant, the patient would likely need a ntibiotics for 14 more days upon discharge. The patient was otherwise optimized medically. He was continued on insulin regimen for his type 2 diabetes and, of note, his A1c was 8.3. He was on antih ypertensives for his hypertension and he was noted to be anemic and we did find he was iron deficien t and continued him on iron supplement. During his course of his stay, he did improve. The plan of care was discussed with the patient and family and the patient and family did verbalize their under standing. On the day of discharge, the patient was in stable condition. DISCHARGE PHYSICAL EXAMINATION: VITAL SIGNS: Stable. CONDITION: Stable. DISCHARGE PLAN: 1. Diet is carbohydrate controlled. 2. The patient to follow up with his primary care provider within a week. 3. The patient to call primary care provider if he has worsening right knee pain or swelling. DISCHARGE MEDICATIONS: 1. Ceftriaxone 1 gram IV daily for 14 days. 2. Ferrous sulfate 325 mg p.o. t.i.d. 3. NovoLog 5 units subq with meals. 4. Lantus 20 units subq q.a.m. 5. Lisinopril 5 mg p.o. daily. 6. Vancomycin, pharmacy to dose IV t.i.d. for 14 days. DISCHARGE PROCESS TIME: 40 minutes. Discussed plan of care with Dr. Nino. Dictated By: YARELIS ABRAMS PLANNING ANALYST for ALCIDES NINO RR/JENS Conf#: [id number] DID#: [id number] CC: DANIELITO DUKE MD;*EndCC*
--- NOTE | 2016-08-29 17:36 | RADRPT ---
PROCEDURE: XR Chest. CLINICAL INDICATION: PICC line placement TECHNIQUE: Chest AP portable. COMPARISON: No comparison available. FINDINGS: Left arm PICC line with tip at SVC / RA junction The mediastinal structures are unremarkable. There is calcification of the thoracic aorta (consiste nt with atherosclerosis). The heart is normal in size and configuration. The pulmonary vascularity i s normal. There is mild bibasilar subsegmental atelectasis. The pleural spaces are unremarkable. T he osseous structures are unremarkable. IMPRESSION: Left arm PICC line with tip at SVC / RA junction Bibasilar subsegmental atelectasis. RPTAT: HGDB .Ranjan Spangler MD, Date Time Electronically viewed and signed by .Ranjan Spangler MD, on 08/29/2016 17:35 .B/
--- NOTE | 2016-08-29 17:49 | RADRPT ---
PROCEDURE: Ultrasound guidance for placement of needle in left upper extremity vein. CLINICAL INDICATION: Venous access. TECHNIQUE: Limited sonography of the left upper extremity was performed. Ultrasound images were recorded and s tored in the patient's medical record. COMPARISON: None. FINDINGS: The ultrasound images demonstrate a patent left upper extremity vein. The PICC line was inserted by the PICC line nurse. IMPRESSION: 1. Ultrasound guidance for a needle placement in a left upper extremity vein. 2. The left upper extremity vein is patent. RPTAT: QQ .Manuel Newberry MD, MD Date Time Electronically viewed and signed by .Manuel Newberry MD, MD on 08/29/2016 17:48 .R/
[2016-08-29] MEDS: VANCOMYCIN 1.25 GM in SOD CHLORIDE 0.9% 250 ML IVPB SCH (17:57)
[2016-08-29 21:23] VITALS: BP 136/61; RESP 18
[2016-08-30] MEDS: VANCOMYCIN 1.25 GM in SOD CHLORIDE 0.9% 250 ML IVPB SCH ×3 (01:10→17:32)
[2016-08-30] MEDS: ACCUCHECK XX SCH (02:00)
[2016-08-30 07:33] VITALS: BP 133/59; RESP 18
[2016-08-30] MEDS: INSULIN ASPART [NOVOLOG] 3 ML PEN SC SCH ×7 (08:05→20:35)
[2016-08-30] MEDS: INSULIN GLARGINE [LANtus] 3 ML PEN SC SCH (08:07)
[2016-08-30] MEDS: FAMOTIDINE 20 MG TAB PO SCH ×2 (08:08→20:35)
[2016-08-30] MEDS: ENOXAPARIN 40 MG/0.4 ML SYG SC SCH (08:08)
[2016-08-30] MEDS: LISINOPRIL 5 MG TAB PO SCH (08:09)
--- NOTE | 2016-08-30 12:25 | PN ---
DATE: 08/30/2016 SUBJECTIVE: Patient is awake, feels better. Looks comfortable, no fevers. INDWELLINGS: PICC line placed. ANTIMICROBIALS: He is currently on: 1. IV vancomycin 2. IV Rocephin. PHYSICAL EXAMINATION: GENERAL: Obese, well-developed elderly man who is awake, in no distress. HEENT: Head atraumatic, normocephalic. Sclerae anicteric. Buccal mucosa dry. NECK: Supple. CHEST: Rise symmetrical. Breath sounds clear. HEART: S1, S2. ABDOMEN: Distended, soft. Bowel tones present. EXTREMITIES: With right knee swelling and erythema slightly better stress. ASSESSMENT: 1. Right knee cellulitis with effusion, possible prepatellar bursitis, improving. 2. Diabetes. 3. Anemia. PLAN: Remains stable. No need for surgical intervention per ortho recommendations. Continue antib iotics for a total of 2 weeks, status post PICC line placed, pending discharge planning. Dictated By: JIMI BARLOW WET ROOM WORKER for JACOB PATRICIA/JENS Conf#: [id number] DID#: [id number]
--- NOTE | 2016-08-30 15:35 | PN ---
Date/Time of Note Date/Time of Note DATE: 08/30/16 TIME: 15:32 Assessment/Plan VTE Prophylaxis VTE Prophylaxis Intervention: LMWH Lines/Catheters IV Catheter Type (from Nrsg): PICC Line Central line still needed: Yes Urinary Cath still in place: No Assessment/Plan Chief Complaint/Hosp Course Assessment and plan 1. right knee cellulitis with suspect underlying effusion within the right knee. Continue antibiotics per ID recommendations. Patient seen by orthopedic surgeon. No plan for orthopedic intervention at this time. Continue supportive care. 2. Type 2 diabetes. Patient noted with A1c of 8.3. Continue on insulin regimen. Will adjust as needed 3. History of nicotine use. Nicotine cessation advised 4. Essential hypertension. Continue on anti-hypertensives and adjust as needed 5. anemia. Patient noted with iron deficiency. Continue iron supplement DVT prophylaxis: Lovenox GERD prophylaxis: H2 teresa Disposition and plan: Continue antibiotics. Awaiting authorization for home iv abx. Will d/c once set up Discussed plan of care with Dr. Gallo Problems: Subjective 24 Hr Interval Summary Free Text/Dictation no apparent distress at this time. Family at bedside. Exam/Review of Systems Vital Signs Vitals Vital Signs Date Time Temp Pulse Resp B/P Pulse Ox O2 Delivery O2 Flow Rate FiO2 08/30/16 07:33 98.7 76 18 133/59 96 08/28/16 23:30 Room Air Intake and Output 08/29/16 08/29/16 08/30/16 15:00 23:00 07:00 Intake Total 360 ml 1250 ml 1100 ml Balance 360 ml 1250 ml 1100 ml Exam General: No acute signs or symptoms of distress Eyes: pupils equal round, Anicteric sclera Neck: Supple nontender, no JVD Cardiac: S1, S2 auscultated, regular rhythm and rate Pulmonary: No coarse rhonchi or breathing auscultated GI: Abdomen soft nontender nondistended, bowel sounds active Extremities: Swollen right knee, little less . Little erythematous Skin: Clean dry and intact Neurologic: Alert to person place and time and situation Results Result Diagram: 08/29/16 0445 08/29/16 0445 Results 24 hrs Laboratory Tests Test 08/29/16 17:52 08/29/16 20:43 08/30/16 07:30 08/30/16 11:21 Bedside Glucose 179 162 181 259 H Medications Medications Current Medications Insulin Glargine (Lantus) 15 unit QAM SC Last administered on 08/30/16 08:07; Admin Dose 15 UNIT; Start 08/26/16 at 09:00 Diagnostic Test (Pha) (Accucheck) 1 ea 02 XX ; Start 08/27/16 at 02:00 Miscellaneous Information 1 ea NOTE XX ; Start 08/26/16 at 07:00 Glucose (Glutose) 15 gm Q15M PRN PO DECREASED GLUCOSE; Start 08/26/16 at 07:00 Glucose (Glutose) 22.5 gm Q15M PRN PO DECREASED GLUCOSE; Start 08/26/16 at 07: 00 Dextrose (D50w Syringe) 25 ml Q15M PRN IV DECREASED GLUCOSE; Start 08/26/16 at 07:00 Dextrose (D50w Syringe) 50 ml Q15M PRN IV DECREASED GLUCOSE; Start 08/26/16 at 07:00 Glucagon (Glucagen) 1 mg Q15M PRN IM DECREASED GLUCOSE; Start 08/26/16 at 07: 00 Glucose (Glutose) 15 gm Q15M PRN BUCCAL DECREASED GLUCOSE; Start 08/26/16 at 07:00 Morphine Sulfate (morphine) 2 mg Q4H PRN IV 8-10 Pain level Last administered on 08/27/16 19:00; Admin Dose 2 MG; Start 08/26/16 at 20:30 Lisinopril (Zestril) 5 mg DAILY PO Last administered on 08/30/16 08:09; Admin Dose 5 MG; Start 08/28/16 at 09:00 Enoxaparin Sodium (Lovenox) 40 mg DAILY SC Last administered on 08/30/16 08:08 ; Admin Dose 40 MG; Start 08/28/16 at 09:00 Famotidine 20 mg 20 mg BID PO Last administered on 08/30/16 08:08; Admin Dose 20 MG; Start 08/27/16 at 21:00 Ceftriaxone Sodium 50 ml @ 100 mls/hr Q24H IVPB Last administered on 08/29/16 16:07; Admin Dose 100 MLS/HR; Start 08/27/16 at 17:00 Vancomycin HCl/ Sodium Chloride (Vancocin/NS) 250 ml @ 83.333 mls/ hr Q8H IVPB Last administered on 1/4/17at 08:09; Admin Dose 83.333 MLS/HR; Start 08/29/16 at 17:00 Miscellaneous Information (*Rx Drug Level Order Reminder*) ONCE ONCE XX ; Start 08/30/16 at 16:00; Stop 08/30/16 at 16:01 IV Flush (NS 10 ml) 10 ml PRN PRN IV IV PROTOCOL; Start 08/29/16 at 19:00 YARELIS ABRAMS Aug 30, 2016 15:35
[2016-08-30] MEDS: CEFTRIAXONE 1 GM/50 ML (PMX) 50 ML IVPB SCH (16:25)
[2016-08-30] MEDS: morphine 2 MG INJ IV PRN (18:37)
[2016-08-30 20:31] VITALS: BP 106/53; RESP 16
[2016-08-31] MEDS ORDERED: ALTEPLASE (CATHFLO) 2 MG INJ CATHETER ONE (01:00)
[2016-08-31] MEDS ORDERED: ALTEPLASE (CATHFLO) 2 MG INJ CATHETER PRN (01:00)
[2016-08-31] MEDS: ACCUCHECK XX SCH (02:00)
[2016-08-31] MEDS: morphine 2 MG INJ IV PRN ×2 (03:24→17:03)
[2016-08-31 05:50] LABS: BASOPHILS % 0.4 % (0.0-2.0); EOSINOPHILS # 0.3 10^3/ul (0.0-0.5); EOSINOPHILS % 3.7 % (0.0-7.0); HEMATOCRIT 29.6 % (42.0-52.0); HEMOGLOBIN 10.3 g/dl (14.0-18.0); LYMPHOCYTES # 0.8 10^3/ul (0.8-2.9); LYMPHOCYTES % 10.1 % (15.0-51.0); MEAN CORPUSCULAR HEMOGLOBIN 31.2 pg (29.0-33.0); MEAN CORPUSCULAR HGB CONC 34.8 g/dl (32.0-37.0); MEAN CORPUSCULAR VOLUME 89.6 fl (82.0-101.0); MEAN PLATELET VOLUME 6.5 fl (7.4-10.4); MONOCYTE # 0.9 10^3/ul (0.3-0.9); MONOCYTES % 11.5 % (0.0-11.0); NEUTROPHIL # 5.6 10^3/ul (1.6-7.5); NEUTROPHILS % 74.3 % (39.0-77.0); PLATELET COUNT 353 10^3/UL (140-440); RED CELL DISTRIBUTION WIDTH 12.6 % (11.5-14.5); UNCORRECTED WBC 7.5 10^3/ul (4.8-10.8); WHITE BLOOD COUNT 7.5 10^3/ul (4.8-10.8)
[2016-08-31 05:58] LABS: CONDITION 1
[2016-08-31 06:05] LABS: POTASSIUM 3.8 mmol/L (3.5-5.1)
[2016-08-31 06:07] LABS: CREATININE 0.52 mg/dl (0.61-1.24)
[2016-08-31 08:15] VITALS: BP 119/59; RESP 20
[2016-08-31] MEDS: INSULIN ASPART [NOVOLOG] 3 ML PEN SC SCH ×7 (08:24→21:10)
[2016-08-31] MEDS: INSULIN GLARGINE [LANtus] 3 ML PEN SC SCH (08:25)
[2016-08-31] MEDS: ENOXAPARIN 40 MG/0.4 ML SYG SC SCH (08:26)
[2016-08-31] MEDS: FAMOTIDINE 20 MG TAB PO SCH ×2 (08:27→21:07)
[2016-08-31] MEDS: LISINOPRIL 5 MG TAB PO SCH (08:27)
[2016-08-31] MEDS: VANCOMYCIN 1.25 GM in SOD CHLORIDE 0.9% 250 ML IVPB SCH ×4 (08:28→16:54)
--- NOTE | 2016-08-31 12:42 | CONS ---
Date/Time of Note Date/Time of Note DATE: 08/31/16 TIME: 12:41 Consult Date/Type/Reason Admit Date/Time Aug 26, 2016 at 05:05 Initial Consult Date Type of Consultation: ID Subjective no events looks comfortable, no fevers Objective Vital Signs Date Time Temp Pulse Resp B/P Pulse Ox O2 Delivery O2 Flow Rate FiO2 08/31/16 08:15 99.7 74 20 119/59 94 08/28/16 23:30 Room Air Intake and Output 08/30/16 08/30/16 08/31/16 15:00 23:00 07:00 Intake Total 250 ml 1140 ml 770 ml Balance 250 ml 1140 ml 770 ml Results/Medications Result Diagram: 08/31/16 0440 08/31/16 0440 Results 24 hrs Laboratory Tests Test 08/30/16 16:01 08/30/16 16:49 08/30/16 19:58 08/31/16 04:40 Vancomycin Level Trough 12.2 Bedside Glucose 105 147 Anion Gap 14 Basophils # 0.0 Basophils % 0.4 Blood Morphology Comment Blood Urea Nitrogen 10 Calcium Level 8.0 L Carbon Dioxide Level 25 Chloride Level 103 Creatinine 0.52 L Eosinophils # 0.3 Eosinophils % 3.7 Glucose Level 172 Hematocrit 29.6 L Hemoglobin 10.3 L Lymphocytes # 0.8 Lymphocytes % 10.1 L Mean Corpuscular Hemoglobin 31.2 Mean Corpuscular Hemoglobin Concent 34.8 Mean Corpuscular Volume 89.6 Mean Platelet Volume 6.5 L Monocytes # 0.9 Monocytes % 11.5 H Neutrophils # 5.6 Neutrophils % 74.3 Nucleated Red Blood Cells # 0.0 Nucleated Red Blood Cells % 0.0 Platelet Count 353 # Potassium Level 3.8 Red Blood Count 3.30 L Red Cell Distribution Width 12.6 Sodium Level 138 White Blood Count 7.5 Test 08/31/16 07:09 08/31/16 11:05 Bedside Glucose 171 365 H Medications Current Medications Insulin Glargine (Lantus) 15 unit QAM SC Last administered on 08/31/16t 08:25; Admin Dose 15 UNIT; Start 08/26/16 at 09:00 Diagnostic Test (Pha) (Accucheck) 1 ea 02 XX ; Start 08/27/16 at 02:00 Miscellaneous Information 1 ea NOTE XX ; Start 08/26/16 at 07:00 Glucose (Glutose) 15 gm Q15M PRN PO DECREASED GLUCOSE; Start 08/26/16 at 07:00 Glucose (Glutose) 22.5 gm Q15M PRN PO DECREASED GLUCOSE; Start 08/26/16 at 07: 00 Dextrose (D50w Syringe) 25 ml Q15M PRN IV DECREASED GLUCOSE; Start 08/26/16 at 07:00 Dextrose (D50w Syringe) 50 ml Q15M PRN IV DECREASED GLUCOSE; Start 08/26/16 at 07:00 Glucagon (Glucagen) 1 mg Q15M PRN IM DECREASED GLUCOSE; Start 08/26/16 at 07: 00 Glucose (Glutose) 15 gm Q15M PRN BUCCAL DECREASED GLUCOSE; Start 08/26/16 at 07:00 Morphine Sulfate (morphine) 2 mg Q4H PRN IV 8-10 Pain level Last administered on 08/31/16 03:24; Admin Dose 2 MG; Start 08/26/16 at 20:30 Lisinopril (Zestril) 5 mg DAILY PO Last administered on 08/31/16 08:27; Admin Dose 5 MG; Start 08/28/16 at 09:00 Enoxaparin Sodium (Lovenox) 40 mg DAILY SC Last administered on 08/31/16 08:26 ; Admin Dose 40 MG; Start 08/28/16 at 09:00 Famotidine 20 mg 20 mg BID PO Last administered on 08/31/16 08:27; Admin Dose 20 MG; Start 08/27/16 at 21:00 Ceftriaxone Sodium 50 ml @ 100 mls/hr Q24H IVPB Last administered on 08/30/16 16:25; Admin Dose 100 MLS/HR; Start 08/27/16 at 17:00 Vancomycin HCl/ Sodium Chloride (Vancocin/NS) 250 ml @ 83.333 mls/ hr Q8H IVPB Last administered on 08/31/16 08:28; Admin Dose 83.333 MLS/HR; Start 08/29/16 at 17:00 IV Flush (NS 10 ml) 10 ml PRN PRN IV IV PROTOCOL; Start 08/29/16 at 19:00 Assessment/Plan Chief Complaint/Hosp Course INDWELLINGS: PICC line placed. ANTIMICROBIALS: He is currently on: 1. IV vancomycin 2. IV Rocephin. PHYSICAL EXAMINATION: GENERAL: Obese, well-developed elderly man who is awake, in no distress. HEENT: Head atraumatic, normocephalic. Sclerae anicteric. Buccal mucosa dry. NECK: Supple. CHEST: Rise symmetrical. Breath sounds clear. HEART: S1, S2. ABDOMEN: Distended, soft. Bowel tones present. EXTREMITIES: Right knee swelling and erythema==> improved ASSESSMENT: 1. Right knee cellulitis with effusion, possible prepatellar bursitis, improving. 2. Diabetes. 3. Anemia. PLAN: Remains stable. No need for surgical intervention per ortho recommendations. Continue antibiotics for a total of 2 weeks, status post PICC line placed, pending discharge planning. DW staff Problems: JIMI BARLOW NP Aug 31, 2016 12:42
--- NOTE | 2016-08-31 15:36 | PN ---
Date/Time of Note Date/Time of Note DATE: 08/31/16 TIME: 15:32 Assessment/Plan VTE Prophylaxis VTE Prophylaxis Intervention: LMWH Lines/Catheters IV Catheter Type (from Nrs): PICC Line Urinary Cath still in place: No Assessment/Plan Chief Complaint/Hosp Course Assessment and plan 1. right knee cellulitis with suspect underlying effusion within the right knee. Continue antibiotics per ID recommendations. Patient seen by orthopedic surgeon. No plan for orthopedic intervention at this time. Continue supportive care. 2. Type 2 diabetes. Patient noted with A1c of 8.3. Continue on insulin regimen. Will adjust as needed 3. History of nicotine use. Nicotine cessation advised 4. Essential hypertension. Continue on anti-hypertensives and adjust as needed 5. anemia. Patient noted with iron deficiency. Continue iron supplement DVT prophylaxis: Lovenox GERD prophylaxis: H2 teresa Disposition and plan: Continue antibiotics. Awaiting authorization for home iv abx. Will d/c once set up . Continue supportive care for now. We'll follow-up with case management Discussed plan of care with Dr. Gallo Problems: Subjective 24 Hr Interval Summary Free Text/Dictation Comfortable at present. No apparent distress Exam/Review of Systems Vital Signs Vitals Vital Signs Date Time Temp Pulse Resp B/P Pulse Ox O2 Delivery O2 Flow Rate FiO2 08/31/16 08:15 99.7 74 20 119/59 94 08/28/16 23:30 Room Air Intake and Output 08/30/16 08/30/16 08/31/16 14:59 22:59 06:59 Intake Total 250 ml 1140 ml 770 ml Balance 250 ml 1140 ml 770 ml Exam General: No acute signs or symptoms of distress Eyes: pupils equal round, Anicteric sclera Neck: Supple nontender, no JVD Cardiac: S1, S2 auscultated, regular rhythm and rate Pulmonary: No coarse rhonchi or breathing auscultated GI: Abdomen soft nontender nondistended, bowel sounds active Extremities: Swollen right knee, little less . Little erythematous Skin: Clean dry and intact Neurologic: Alert to person place and time and situation Results Result Diagram: 08/31/16 0440 08/31/16 0440 Results 24 hrs Laboratory Tests Test 08/30/16 16:01 08/30/16 16:49 08/30/16 19:58 08/31/16 04:40 Vancomycin Level Trough 12.2 Bedside Glucose 105 147 Anion Gap 14 Basophils # 0.0 Basophils % 0.4 Blood Morphology Comment Blood Urea Nitrogen 10 Calcium Level 8.0 L Carbon Dioxide Level 25 Chloride Level 103 Creatinine 0.52 L Eosinophils # 0.3 Eosinophils % 3.7 Glucose Level 172 Hematocrit 29.6 L Hemoglobin 10.3 L Lymphocytes # 0.8 Lymphocytes % 10.1 L Mean Corpuscular Hemoglobin 31.2 Mean Corpuscular Hemoglobin Concent 34.8 Mean Corpuscular Volume 89.6 Mean Platelet Volume 6.5 L Monocytes # 0.9 Monocytes % 11.5 H Neutrophils # 5.6 Neutrophils % 74.3 Nucleated Red Blood Cells # 0.0 Nucleated Red Blood Cells % 0.0 Platelet Count 353 # Potassium Level 3.8 Red Blood Count 3.30 L Red Cell Distribution Width 12.6 Sodium Level 138 White Blood Count 7.5 Test 08/31/16 07:09 08/31/16 11:05 Bedside Glucose 171 365 H Medications Medications Current Medications Insulin Glargine (Lantus) 15 unit QAM SC Last administered on 08/31/16 08:25; Admin Dose 15 UNIT; Start 08/26/16 at 09:00 Diagnostic Test (Pha) (Accucheck) 1 ea 02 XX ; Start 08/27/16 at 02:00 Miscellaneous Information 1 ea NOTE XX ; Start 08/26/16 at 07:00 Glucose (Glutose) 15 gm Q15M PRN PO DECREASED GLUCOSE; Start 08/26/16 at 07:00 Glucose (Glutose) 22.5 gm Q15M PRN PO DECREASED GLUCOSE; Start 08/26/16 at 07: 00 Dextrose (D50w Syringe) 25 ml Q15M PRN IV DECREASED GLUCOSE; Start 08/26/16 at 07:00 Dextrose (D50w Syringe) 50 ml Q15M PRN IV DECREASED GLUCOSE; Start 08/26/16 at 07:00 Glucagon (Glucagen) 1 mg Q15M PRN IM DECREASED GLUCOSE; Start 08/26/16 at 07: 00 Glucose (Glutose) 15 gm Q15M PRN BUCCAL DECREASED GLUCOSE; Start 08/26/16 at 07:00 Morphine Sulfate (morphine) 2 mg Q4H PRN IV 8-10 Pain level Last administered on 08/31/16 03:24; Admin Dose 2 MG; Start 08/26/16 at 20:30 Lisinopril (Zestril) 5 mg DAILY PO Last administered on 08/31/16 08:27; Admin Dose 5 MG; Start 08/28/16 at 09:00 Enoxaparin Sodium (Lovenox) 40 mg DAILY SC Last administered on 08/31/16 08:26 ; Admin Dose 40 MG; Start 08/28/16 at 09:00 Famotidine 20 mg 20 mg BID PO Last administered on 08/31/16 08:27; Admin Dose 20 MG; Start 08/27/16 at 21:00 Ceftriaxone Sodium 50 ml @ 100 mls/hr Q24H IVPB Last administered on 08/30/16 16:25; Admin Dose 100 MLS/HR; Start 08/27/16 at 17:00 Vancomycin HCl/ Sodium Chloride (Vancocin/NS) 250 ml @ 83.333 mls/ hr Q8H IVPB Last administered on 08/31/16 08:28; Admin Dose 83.333 MLS/HR; Start 08/29/16 at 17:00 IV Flush (NS 10 ml) 10 ml PRN PRN IV IV PROTOCOL; Start 08/29/16 at 19:00 YARELIS ABRAMS Aug 31, 2016 15:36
[2016-08-31] MEDS: CEFTRIAXONE 1 GM/50 ML (PMX) 50 ML IVPB SCH (16:14)
--- NOTE | 2016-08-31 18:58 | RADRPT ---
PROCEDURE: US upper extremity Venous. CLINICAL INDICATION: Right upper arm pain and swelling. TECHNIQUE: Multiple sonographic images of the right upper extremity venous system was obtained uti lizing grayscale, color-flow, compressive sonography and doppler imaging with augmentation. The paty ges were reviewed on a PACS workstation. COMPARISON: None. FINDINGS: Noncompressible interval thrombus within the cephalic vein . There is normal compressibility and flow within the right internal jugular vein, subclavian vein, ax illary vein, brachial, basilic, , radial and ulnar veins. IMPRESSION: Noncompressible intraluminal thrombus within the cephalic vein compatible with superficial venous th rombosis. No other evidence of DVT. RPTAT:AAJJ Physician Elif Date Time Electronically viewed and signed by Physician Elif on 08/31/2016 18:58 ODALYS/
[2016-08-31 20:43] VITALS: BP 132/63; RESP 16
[2016-09-01] MEDS: VANCOMYCIN 1.25 GM in SOD CHLORIDE 0.9% 250 ML IVPB SCH ×3 (00:01→18:32)
[2016-09-01] MEDS: ACCUCHECK XX SCH (02:00)
[2016-09-01 06:07] LABS: BASOPHILS % 0.3 % (0.0-2.0); EOSINOPHILS # 0.4 10^3/ul (0.0-0.5); EOSINOPHILS % 4.2 % (0.0-7.0); HEMATOCRIT 30.6 % (42.0-52.0); HEMOGLOBIN 10.8 g/dl (14.0-18.0); LYMPHOCYTES # 1.1 10^3/ul (0.8-2.9); LYMPHOCYTES % 12.5 % (15.0-51.0); MEAN CORPUSCULAR HEMOGLOBIN 31.4 pg (29.0-33.0); MEAN CORPUSCULAR HGB CONC 35.2 g/dl (32.0-37.0); MEAN CORPUSCULAR VOLUME 89.4 fl (82.0-101.0); MEAN PLATELET VOLUME 6.6 fl (7.4-10.4); MONOCYTE # 0.9 10^3/ul (0.3-0.9); MONOCYTES % 9.9 % (0.0-11.0); NEUTROPHIL # 6.7 10^3/ul (1.6-7.5); NEUTROPHILS % 73.1 % (39.0-77.0); PLATELET COUNT 373 10^3/UL (140-440); RED BLOOD COUNT 3.43 10^6/ul (4.70-6.10); RED CELL DISTRIBUTION WIDTH 12.3 % (11.5-14.5); UNCORRECTED WBC 9.1 10^3/ul (4.8-10.8); WHITE BLOOD COUNT 9.1 10^3/ul (4.8-10.8)
[2016-09-01 06:08] LABS: POTASSIUM 3.9 mmol/L (3.5-5.1)
[2016-09-01 06:10] LABS: CREATININE 0.54 mg/dl (0.61-1.24)
[2016-09-01 06:11] LABS: CALCIUM 8.5 mg/dl (8.4-10.2)
[2016-09-01 06:15] LABS: CONDITION 1
[2016-09-01 07:38] VITALS: BP 136/65; RESP 20
[2016-09-01] MEDS: LISINOPRIL 5 MG TAB PO SCH (08:33)
[2016-09-01] MEDS: FAMOTIDINE 20 MG TAB PO SCH ×2 (08:34→20:11)
[2016-09-01] MEDS: INSULIN GLARGINE [LANtus] 3 ML PEN SC SCH (08:36)
[2016-09-01] MEDS: ENOXAPARIN 40 MG/0.4 ML SYG SC SCH (08:36)
[2016-09-01] MEDS: INSULIN ASPART [NOVOLOG] 3 ML PEN SC SCH ×8 (08:38→21:00)
--- NOTE | 2016-09-01 14:02 | CONS ---
Date/Time of Note Date/Time of Note DATE: 09/01/16 TIME: 14:00 Consult Date/Type/Reason Admit Date/Time Aug 26, 2016 at 05:05 Type of Consultation: ID Subjective awake looks comfortable, family at bedside, no fevers Objective Vital Signs Date Time Temp Pulse Resp B/P Pulse Ox O2 Delivery O2 Flow Rate FiO2 09/01/16 07:38 98.9 74 20 136/65 93 08/28/16 23:30 Room Air Intake and Output 08/31/16 08/31/16 09/01/16 15:00 23:00 07:00 Intake Total 1260 ml 730 ml Balance 1260 ml 730 ml Results/Medications Result Diagram: 09/01/16 0425 09/01/16 0425 Results 24 hrs Laboratory Tests Test 08/31/16 16:57 08/31/16 19:42 09/01/16 00:59 09/01/16 04:25 Bedside Glucose 142 191 147 Anion Gap 16 Basophils # 0.0 Basophils % 0.3 Blood Morphology Comment Blood Urea Nitrogen 9 Calcium Level 8.5 Carbon Dioxide Level 25 Chloride Level 101 Creatinine 0.54 L Eosinophils # 0.4 Eosinophils % 4.2 Glucose Level 151 Hematocrit 30.6 L Hemoglobin 10.8 L Lymphocytes # 1.1 Lymphocytes % 12.5 L Mean Corpuscular Hemoglobin 31.4 Mean Corpuscular Hemoglobin Concent 35.2 Mean Corpuscular Volume 89.4 Mean Platelet Volume 6.6 L Monocytes # 0.9 Monocytes % 9.9 Neutrophils # 6.7 Neutrophils % 73.1 Nucleated Red Blood Cells # 0.0 Nucleated Red Blood Cells % 0.0 Platelet Count 373 Potassium Level 3.9 Red Blood Count 3.43 L Red Cell Distribution Width 12.3 Sodium Level 138 White Blood Count 9.1 # Test 09/01/16 08:04 09/01/16 11:55 Bedside Glucose 193 241 H Medications Current Medications Insulin Glargine (Lantus) 15 unit QAM SC Last administered on 09/01/16t 08:36; Admin Dose 15 UNIT; Start 08/26/16 at 09:00 Diagnostic Test (Pha) (Accucheck) 1 ea 02 XX ; Start 08/27/16 at 02:00 Miscellaneous Information 1 ea NOTE XX ; Start 08/26/16 at 07:00 Glucose (Glutose) 15 gm Q15M PRN PO DECREASED GLUCOSE; Start 08/26/16 at 07:00 Glucose (Glutose) 22.5 gm Q15M PRN PO DECREASED GLUCOSE; Start 08/26/16 at 07: 00 Dextrose (D50w Syringe) 25 ml Q15M PRN IV DECREASED GLUCOSE; Start 08/26/16 at 07:00 Dextrose (D50w Syringe) 50 ml Q15M PRN IV DECREASED GLUCOSE; Start 08/26/16 at 07:00 Glucagon (Glucagen) 1 mg Q15M PRN IM DECREASED GLUCOSE; Start 08/26/16 at 07: 00 Glucose (Glutose) 15 gm Q15M PRN BUCCAL DECREASED GLUCOSE; Start 08/26/16 at 07:00 Morphine Sulfate (morphine) 2 mg Q4H PRN IV 8-10 Pain level Last administered on 08/31/16 17:03; Admin Dose 2 MG; Start 08/26/16 at 20:30 Lisinopril (Zestril) 5 mg DAILY PO Last administered on 09/01/16 08:33; Admin Dose 5 MG; Start 08/28/16 at 09:00 Enoxaparin Sodium (Lovenox) 40 mg DAILY SC Last administered on 09/01/16 08:36 ; Admin Dose 40 MG; Start 08/28/16 at 09:00 Famotidine 20 mg 20 mg BID PO Last administered on 09/01/16 08:34; Admin Dose 20 MG; Start 08/27/16 at 21:00 Ceftriaxone Sodium 50 ml @ 100 mls/hr Q24H IVPB Last administered on 08/31/16 16:14; Admin Dose 100 MLS/HR; Start 08/27/16 at 17:00 Vancomycin HCl/ Sodium Chloride (Vancocin/NS) 250 ml @ 83.333 mls/ hr Q8H IVPB Last administered on 09/01/16 08:35; Admin Dose 83.333 MLS/HR; Start 08/29/16 at 17:00 IV Flush (NS 10 ml) 10 ml PRN PRN IV IV PROTOCOL; Start 08/29/16 at 19:00 Miscellaneous Information (*Rx Drug Level Order Reminder*) VANCOMYCIN TROUG LEVEL... ONCE ONCE XX ; Start 09/02/16 at 08:00; Stop 09/02/16 at 08:01 Assessment/Plan Chief Complaint/Hosp Course INDWELLINGS: PICC line placed. ANTIMICROBIALS: He is currently on: 1. IV vancomycin 2. IV Rocephin. PHYSICAL EXAMINATION: GENERAL: Obese, well-developed elderly man who is awake, in no distress. HEENT: Head atraumatic, normocephalic. Sclerae anicteric. Buccal mucosa dry. NECK: Supple. CHEST: Rise symmetrical. Breath sounds clear. HEART: S1, S2. ABDOMEN: Distended, soft. Bowel tones present. EXTREMITIES: Right knee swelling and erythema==> improved ASSESSMENT: 1. Right knee cellulitis with effusion, possible prepatellar bursitis, improving. 2. Diabetes. 3. Anemia 4. SAMIA superficial cephalic thrombosis PLAN: Remains stable. Pending dc. Complete antibiotics for a total of 2 weeks, status post PICC line placed DW staff Problems: JIMI BARLOW NP Sep 01, 2016 14:02
--- NOTE | 2016-09-01 16:08 | PN ---
Date/Time of Note Date/Time of Note DATE: 09/01/16 TIME: 16:06 Assessment/Plan VTE Prophylaxis VTE Prophylaxis Intervention: LMWH Lines/Catheters IV Catheter Type (from Nrs): PICC Line Urinary Cath still in place: No Assessment/Plan Chief Complaint/Hosp Course Assessment and plan 1. right knee cellulitis with suspect underlying effusion within the right knee. Continue antibiotics per ID recommendations. Patient seen by orthopedic surgeon. No plan for orthopedic intervention at this time. Continue supportive care. 2. Type 2 diabetes. Patient noted with A1c of 8.3. Continue on insulin regimen. Will adjust as needed 3. History of nicotine use. Nicotine cessation advised 4. Essential hypertension. Continue on anti-hypertensives and adjust as needed 5. anemia. Patient noted with iron deficiency. Continue iron supplement DVT prophylaxis: Lovenox GERD prophylaxis: H2 teresa Disposition and plan: Continue antibiotics. Awaiting authorization for home iv abx. Will d/c once set up . Check AM labs Discussed plan of care with Dr. Gallo Problems: Subjective 24 Hr Interval Summary Free Text/Dictation No acute distress noted at this time. Exam/Review of Systems Vital Signs Vitals Vital Signs Date Time Temp Pulse Resp B/P Pulse Ox O2 Delivery O2 Flow Rate FiO2 09/01/16 07:38 98.9 74 20 136/65 93 08/28/16 23:30 Room Air Intake and Output 08/31/16 08/31/16 09/01/16 15:00 23:00 07:00 Intake Total 1260 ml 730 ml Balance 1260 ml 730 ml Exam General: No acute signs or symptoms of distress Eyes: pupils equal round, Anicteric sclera Neck: Supple nontender, no JVD Cardiac: S1, S2 auscultated, regular rhythm and rate Pulmonary: No coarse rhonchi or breathing auscultated GI: Abdomen soft nontender nondistended, bowel sounds active Extremities: Swollen right knee, little less . Little erythematous Skin: Clean dry and intact Neurologic: Alert to person place and time and situation Results Result Diagram: 09/01/16 0425 09/01/16 0425 Results 24 hrs Laboratory Tests Test 08/31/16 16:57 08/31/16 19:42 09/01/16 00:59 09/01/16 04:25 Bedside Glucose 142 191 147 Anion Gap 16 Basophils # 0.0 Basophils % 0.3 Blood Morphology Comment Blood Urea Nitrogen 9 Calcium Level 8.5 Carbon Dioxide Level 25 Chloride Level 101 Creatinine 0.54 L Eosinophils # 0.4 Eosinophils % 4.2 Glucose Level 151 Hematocrit 30.6 L Hemoglobin 10.8 L Lymphocytes # 1.1 Lymphocytes % 12.5 L Mean Corpuscular Hemoglobin 31.4 Mean Corpuscular Hemoglobin Concent 35.2 Mean Corpuscular Volume 89.4 Mean Platelet Volume 6.6 L Monocytes # 0.9 Monocytes % 9.9 Neutrophils # 6.7 Neutrophils % 73.1 Nucleated Red Blood Cells # 0.0 Nucleated Red Blood Cells % 0.0 Platelet Count 373 Potassium Level 3.9 Red Blood Count 3.43 L Red Cell Distribution Width 12.3 Sodium Level 138 White Blood Count 9.1 # Test 09/01/16 08:04 09/01/16 11:55 Bedside Glucose 193 241 H Medications Medications Current Medications Insulin Glargine (Lantus) 15 unit QAM SC Last administered on 09/01/16 08:36; Admin Dose 15 UNIT; Start 08/26/16 at 09:00 Diagnostic Test (Pha) (Accucheck) 1 ea 02 XX ; Start 08/27/16 at 02:00 Miscellaneous Information 1 ea NOTE XX ; Start 08/26/16 at 07:00 Glucose (Glutose) 15 gm Q15M PRN PO DECREASED GLUCOSE; Start 08/26/16 at 07:00 Glucose (Glutose) 22.5 gm Q15M PRN PO DECREASED GLUCOSE; Start 08/26/16 at 07: 00 Dextrose (D50w Syringe) 25 ml Q15M PRN IV DECREASED GLUCOSE; Start 08/26/16 at 07:00 Dextrose (D50w Syringe) 50 ml Q15M PRN IV DECREASED GLUCOSE; Start 08/26/16 at 07:00 Glucagon (Glucagen) 1 mg Q15M PRN IM DECREASED GLUCOSE; Start 08/26/16 at 07: 00 Glucose (Glutose) 15 gm Q15M PRN BUCCAL DECREASED GLUCOSE; Start 08/26/16 at 07:00 Morphine Sulfate (morphine) 2 mg Q4H PRN IV 8-10 Pain level Last administered on 08/31/16 17:03; Admin Dose 2 MG; Start 08/26/16 at 20:30 Lisinopril (Zestril) 5 mg DAILY PO Last administered on 09/01/16 08:33; Admin Dose 5 MG; Start 08/28/16 at 09:00 Enoxaparin Sodium (Lovenox) 40 mg DAILY SC Last administered on 09/01/16 08:36 ; Admin Dose 40 MG; Start 08/28/16 at 09:00 Famotidine 20 mg 20 mg BID PO Last administered on 09/01/16 08:34; Admin Dose 20 MG; Start 08/27/16 at 21:00 Ceftriaxone Sodium 50 ml @ 100 mls/hr Q24H IVPB Last administered on 08/31/16 16:14; Admin Dose 100 MLS/HR; Start 08/27/16 at 17:00 Vancomycin HCl/ Sodium Chloride (Vancocin/NS) 250 ml @ 83.333 mls/ hr Q8H IVPB Last administered on 09/01/16 08:35; Admin Dose 83.333 MLS/HR; Start 08/29/16 at 17:00 IV Flush (NS 10 ml) 10 ml PRN PRN IV IV PROTOCOL; Start 08/29/16 at 19:00 Miscellaneous Information (*Rx Drug Level Order Reminder*) VANCOMYCIN TROUG LEVEL... ONCE ONCE XX ; Start 09/02/16 at 08:00; Stop 09/02/16 at 08:01 YARELIS ABRAMS Sep 01, 2016 16:08
[2016-09-01] MEDS: CEFTRIAXONE 1 GM/50 ML (PMX) 50 ML IVPB SCH (17:35)
[2016-09-01] MEDS: morphine 2 MG INJ IV PRN (17:35)
[2016-09-01 19:23] VITALS: BP 130/63; RESP 20
[2016-09-02] MEDS: VANCOMYCIN 1.25 GM in SOD CHLORIDE 0.9% 250 ML IVPB SCH ×3 (00:35→16:14)
[2016-09-02] MEDS: ACCUCHECK XX SCH (02:00)
[2016-09-02 07:25] VITALS: BP 123/58; RESP 18
[2016-09-02] MEDS: FAMOTIDINE 20 MG TAB PO SCH ×2 (08:41→20:13)
[2016-09-02] MEDS: morphine 2 MG INJ IV PRN ×2 (08:41→12:16)
[2016-09-02] MEDS: LISINOPRIL 5 MG TAB PO SCH (08:42)
[2016-09-02] MEDS: INSULIN GLARGINE [LANtus] 3 ML PEN SC SCH (08:43)
[2016-09-02] MEDS: INSULIN ASPART [NOVOLOG] 3 ML PEN SC SCH ×6 (08:44→20:31)
[2016-09-02] MEDS: ENOXAPARIN 40 MG/0.4 ML SYG SC SCH (08:46)
[2016-09-02 09:26] LABS: BASOPHILS % 0.3 % (0.0-2.0); EOSINOPHILS # 0.4 10^3/ul (0.0-0.5); EOSINOPHILS % 3.6 % (0.0-7.0); HEMATOCRIT 32.5 % (42.0-52.0); HEMOGLOBIN 11.3 g/dl (14.0-18.0); LYMPHOCYTES # 0.8 10^3/ul (0.8-2.9); LYMPHOCYTES % 8.3 % (15.0-51.0); MEAN CORPUSCULAR HEMOGLOBIN 31.2 pg (29.0-33.0); MEAN CORPUSCULAR HGB CONC 34.8 g/dl (32.0-37.0); MEAN CORPUSCULAR VOLUME 89.5 fl (82.0-101.0); MEAN PLATELET VOLUME 6.4 fl (7.4-10.4); MONOCYTES % 9.6 % (0.0-11.0); NEUTROPHIL # 7.9 10^3/ul (1.6-7.5); NEUTROPHILS % 78.2 % (39.0-77.0); PLATELET COUNT 436 10^3/UL (140-440); RED BLOOD COUNT 3.63 10^6/ul (4.70-6.10); RED CELL DISTRIBUTION WIDTH 12.6 % (11.5-14.5); UNCORRECTED WBC 10.1 10^3/ul (4.8-10.8); WHITE BLOOD COUNT 10.1 10^3/ul (4.8-10.8)
[2016-09-02 09:32] LABS: CONDITION 1
[2016-09-02 09:34] LABS: POTASSIUM 4.1 mmol/L (3.5-5.1)
[2016-09-02 09:36] LABS: CREATININE 0.56 mg/dl (0.61-1.24)
[2016-09-02 09:38] LABS: CALCIUM 8.8 mg/dl (8.4-10.2)
--- NOTE | 2016-09-02 14:10 | CONS ---
Date/Time of Note Date/Time of Note DATE: 09/02/16 TIME: 14:09 Consult Date/Type/Reason Admit Date/Time Aug 26, 2016 at 05:05 Type of Consultation: ID Subjective alert, feels better, no fevers, no n/v/d Objective Vital Signs Date Time Temp Pulse Resp B/P Pulse Ox O2 Delivery O2 Flow Rate FiO2 09/02/16 07:25 98.5 75 18 123/58 94 Intake and Output 09/01/16 09/01/16 09/02/16 15:00 23:00 07:00 Intake Total 1870 ml 570 ml Balance 1870 ml 570 ml Results/Medications Result Diagram: 09/02/16 0815 09/02/16 0815 Results 24 hrs Laboratory Tests Test 09/01/16 17:00 09/01/16 20:09 09/02/16 08:00 09/02/16 08:15 Bedside Glucose 110 132 178 Anion Gap 17 H Basophils # 0.0 Basophils % 0.3 Blood Morphology Comment Blood Urea Nitrogen 9 Calcium Level 8.8 Carbon Dioxide Level 25 Chloride Level 99 Creatinine 0.56 L Eosinophils # 0.4 Eosinophils % 3.6 Glucose Level 159 Hematocrit 32.5 L Hemoglobin 11.3 L Lymphocytes # 0.8 Lymphocytes % 8.3 L Mean Corpuscular Hemoglobin 31.2 Mean Corpuscular Hemoglobin Concent 34.8 Mean Corpuscular Volume 89.5 Mean Platelet Volume 6.4 L Monocytes # 1.0 H Monocytes % 9.6 Neutrophils # 7.9 H Neutrophils % 78.2 H Nucleated Red Blood Cells # 0.0 Nucleated Red Blood Cells % 0.0 Platelet Count 436 Potassium Level 4.1 Red Blood Count 3.63 L Red Cell Distribution Width 12.6 Sodium Level 137 Vancomycin Level Trough 13.9 White Blood Count 10.1 Test 09/02/16 11:39 Bedside Glucose 197 Medications Current Medications Insulin Glargine (Lantus) 15 unit QAM SC Last administered on 09/02/16t 08:43; Admin Dose 15 UNIT; Start 08/26/16 at 09:00 Diagnostic Test (Pha) (Accucheck) 1 ea 02 XX ; Start 08/27/16 at 02:00 Miscellaneous Information 1 ea NOTE XX ; Start 08/26/16 at 07:00 Glucose (Glutose) 15 gm Q15M PRN PO DECREASED GLUCOSE; Start 08/26/16 at 07:00 Glucose (Glutose) 22.5 gm Q15M PRN PO DECREASED GLUCOSE; Start 08/26/16 at 07: 00 Dextrose (D50w Syringe) 25 ml Q15M PRN IV DECREASED GLUCOSE; Start 08/26/16 at 07:00 Dextrose (D50w Syringe) 50 ml Q15M PRN IV DECREASED GLUCOSE; Start 08/26/16 at 07:00 Glucagon (Glucagen) 1 mg Q15M PRN IM DECREASED GLUCOSE; Start 08/26/16 at 07: 00 Glucose (Glutose) 15 gm Q15M PRN BUCCAL DECREASED GLUCOSE; Start 08/26/16 at 07:00 Morphine Sulfate (morphine) 2 mg Q4H PRN IV 8-10 Pain level Last administered on 09/02/16 12:16; Admin Dose 2 MG; Start 08/26/16 at 20:30 Lisinopril (Zestril) 5 mg DAILY PO Last administered on 09/02/16 08:42; Admin Dose 5 MG; Start 08/28/16 at 09:00 Enoxaparin Sodium (Lovenox) 40 mg DAILY SC Last administered on 09/02/16 08:46 ; Admin Dose 40 MG; Start 08/28/16 at 09:00 Famotidine 20 mg 20 mg BID PO Last administered on 09/02/16 08:41; Admin Dose 20 MG; Start 08/27/16 at 21:00 Ceftriaxone Sodium 50 ml @ 100 mls/hr Q24H IVPB Last administered on 09/01/16 17:35; Admin Dose 100 MLS/HR; Start 08/27/16 at 17:00 Vancomycin HCl/ Sodium Chloride (Vancocin/NS) 250 ml @ 83.333 mls/ hr Q8H IVPB Last administered on 09/02/16 11:35; Admin Dose 83.333 MLS/HR; Start 08/29/16 at 17:00 IV Flush (NS 10 ml) 10 ml PRN PRN IV IV PROTOCOL; Start 08/29/16 at 19:00 Assessment/Plan Chief Complaint/Hosp Course INDWELLINGS: PICC line placed. ANTIMICROBIALS: 1. IV vancomycin 2. IV Rocephin. PHYSICAL EXAMINATION: GENERAL: Obese, well-developed elderly man who is awake, in no distress. HEENT: Head atraumatic, normocephalic. Sclerae anicteric. Buccal mucosa dry. NECK: Supple. CHEST: Rise symmetrical. Breath sounds clear. HEART: S1, S2. ABDOMEN: Distended, soft. Bowel tones present. EXTREMITIES: Right knee still with swelling and erythema ASSESSMENT: 1. Right knee cellulitis with effusion, possible prepatellar bursitis. 2. Diabetes. 3. Anemia 4. SAMIA superficial cephalic thrombosis PLAN: Remains stable. Continue abx, RLE elevation, warm compresses, complete antibiotics for a total of 2 weeks, f/u with ortho DW staff DW pt Problems: JIMI BARLOW NP Sep 02, 2016 14:10
--- NOTE | 2016-09-02 15:02 | PN ---
Date/Time of Note Date/Time of Note DATE: 09/02/16 TIME: 15:01 Assessment/Plan VTE Prophylaxis VTE Prophylaxis Intervention: SCD's Lines/Catheters IV Catheter Type (from Nrsg): PICC Line Urinary Cath still in place: No Assessment/Plan Chief Complaint/Hosp Course Assessment and plan 1. right knee cellulitis with suspect underlying effusion within the right knee. Continue antibiotics per ID recommendations. Patient seen by orthopedic surgeon. No plan for orthopedic intervention at this time. Continue supportive care. 2. Type 2 diabetes. Patient noted with A1c of 8.3. Continue on insulin regimen. Will adjust as needed 3. History of nicotine use. Nicotine cessation advised 4. Essential hypertension. Continue on anti-hypertensives and adjust as needed 5. anemia. Patient noted with iron deficiency. Continue iron supplement DVT prophylaxis: Lovenox GERD prophylaxis: H2 teresa Disposition and plan: Continue antibiotics. Awaiting authorization for home iv abx. Will d/c once set up . cont supportive care Discussed plan of care with Dr. Gallo Problems: Subjective 24 Hr Interval Summary Free Text/Dictation less pain on right knee. appears less swollen Exam/Review of Systems Vital Signs Vitals Vital Signs Date Time Temp Pulse Resp B/P Pulse Ox O2 Delivery O2 Flow Rate FiO2 09/02/16 07:25 98.5 75 18 123/58 94 Intake and Output 09/01/16 09/01/16 09/02/16 15:00 23:00 07:00 Intake Total 1870 ml 570 ml Balance 1870 ml 570 ml Exam General: No acute signs or symptoms of distress Eyes: pupils equal round, Anicteric sclera Neck: Supple nontender, no JVD Cardiac: S1, S2 auscultated, regular rhythm and rate Pulmonary: No coarse rhonchi or breathing auscultated GI: Abdomen soft nontender nondistended, bowel sounds active Extremities: Swollen right knee, little less . Little erythematous Skin: Clean dry and intact Neurologic: Alert to person place and time and situation Results Result Diagram: 09/02/16 0815 09/02/16 0815 Results 24 hrs Laboratory Tests Test 09/01/16 17:00 09/01/16 20:09 09/02/16 08:00 09/02/16 08:15 Bedside Glucose 110 132 178 Anion Gap 17 H Basophils # 0.0 Basophils % 0.3 Blood Morphology Comment Blood Urea Nitrogen 9 Calcium Level 8.8 Carbon Dioxide Level 25 Chloride Level 99 Creatinine 0.56 L Eosinophils # 0.4 Eosinophils % 3.6 Glucose Level 159 Hematocrit 32.5 L Hemoglobin 11.3 L Lymphocytes # 0.8 Lymphocytes % 8.3 L Mean Corpuscular Hemoglobin 31.2 Mean Corpuscular Hemoglobin Concent 34.8 Mean Corpuscular Volume 89.5 Mean Platelet Volume 6.4 L Monocytes # 1.0 H Monocytes % 9.6 Neutrophils # 7.9 H Neutrophils % 78.2 H Nucleated Red Blood Cells # 0.0 Nucleated Red Blood Cells % 0.0 Platelet Count 436 Potassium Level 4.1 Red Blood Count 3.63 L Red Cell Distribution Width 12.6 Sodium Level 137 Vancomycin Level Trough 13.9 White Blood Count 10.1 Test 09/02/16 11:39 Bedside Glucose 197 Medications Medications Current Medications Insulin Glargine (Lantus) 15 unit QAM SC Last administered on 09/02/16 08:43; Admin Dose 15 UNIT; Start 08/26/16 at 09:00 Diagnostic Test (Pha) (Accucheck) 1 ea 02 XX ; Start 08/27/16 at 02:00 Miscellaneous Information 1 ea NOTE XX ; Start 08/26/16 at 07:00 Glucose (Glutose) 15 gm Q15M PRN PO DECREASED GLUCOSE; Start 08/26/16 at 07:00 Glucose (Glutose) 22.5 gm Q15M PRN PO DECREASED GLUCOSE; Start 08/26/16 at 07: 00 Dextrose (D50w Syringe) 25 ml Q15M PRN IV DECREASED GLUCOSE; Start 08/26/16 at 07:00 Dextrose (D50w Syringe) 50 ml Q15M PRN IV DECREASED GLUCOSE; Start 08/26/16 at 07:00 Glucagon (Glucagen) 1 mg Q15M PRN IM DECREASED GLUCOSE; Start 08/26/16 at 07: 00 Glucose (Glutose) 15 gm Q15M PRN BUCCAL DECREASED GLUCOSE; Start 08/26/16 at 07:00 Morphine Sulfate (morphine) 2 mg Q4H PRN IV 8-10 Pain level Last administered on 09/02/16 12:16; Admin Dose 2 MG; Start 08/26/16 at 20:30 Lisinopril (Zestril) 5 mg DAILY PO Last administered on 09/02/16 08:42; Admin Dose 5 MG; Start 08/28/16 at 09:00 Enoxaparin Sodium (Lovenox) 40 mg DAILY SC Last administered on 09/02/16 08:46 ; Admin Dose 40 MG; Start 08/28/16 at 09:00 Famotidine 20 mg 20 mg BID PO Last administered on 09/02/16 08:41; Admin Dose 20 MG; Start 08/27/16 at 21:00 Ceftriaxone Sodium 50 ml @ 100 mls/hr Q24H IVPB Last administered on 09/01/16 17:35; Admin Dose 100 MLS/HR; Start 08/27/16 at 17:00 Vancomycin HCl/ Sodium Chloride (Vancocin/NS) 250 ml @ 83.333 mls/ hr Q8H IVPB Last administered on 09/02/16 11:35; Admin Dose 83.333 MLS/HR; Start 08/29/16 at 17:00 IV Flush (NS 10 ml) 10 ml PRN PRN IV IV PROTOCOL; Start 08/29/16 at 19:00 YARELIS ABRAMS Sep 02, 2016 15:02
[2016-09-02] MEDS: CEFTRIAXONE 1 GM/50 ML (PMX) 50 ML IVPB SCH (16:12)
[2016-09-02 20:28] VITALS: BP 137/63; RESP 24
[2016-09-03] MEDS: VANCOMYCIN 1.25 GM in SOD CHLORIDE 0.9% 250 ML IVPB SCH ×3 (00:45→17:01)
[2016-09-03] MEDS: ACCUCHECK XX SCH (02:00)
[2016-09-03 05:44] LABS: BASOPHILS % 0.1 % (0.0-2.0); EOSINOPHILS # 0.5 10^3/ul (0.0-0.5); EOSINOPHILS % 5.1 % (0.0-7.0); HEMATOCRIT 31.4 % (42.0-52.0); HEMOGLOBIN 11.1 g/dl (14.0-18.0); LYMPHOCYTES # 0.9 10^3/ul (0.8-2.9); LYMPHOCYTES % 10.3 % (15.0-51.0); MEAN CORPUSCULAR HEMOGLOBIN 31.2 pg (29.0-33.0); MEAN CORPUSCULAR HGB CONC 35.2 g/dl (32.0-37.0); MEAN CORPUSCULAR VOLUME 88.7 fl (82.0-101.0); MEAN PLATELET VOLUME 6.2 fl (7.4-10.4); MONOCYTES % 10.4 % (0.0-11.0); NEUTROPHIL # 6.8 10^3/ul (1.6-7.5); NEUTROPHILS % 74.1 % (39.0-77.0); PLATELET COUNT 441 10^3/UL (140-440); RED BLOOD COUNT 3.54 10^6/ul (4.70-6.10); RED CELL DISTRIBUTION WIDTH 12.6 % (11.5-14.5); UNCORRECTED WBC 9.1 10^3/ul (4.8-10.8); WHITE BLOOD COUNT 9.1 10^3/ul (4.8-10.8)
[2016-09-03 06:03] LABS: CONDITION 1
[2016-09-03 06:08] LABS: CREATININE 0.55 mg/dl (0.61-1.24)
[2016-09-03 06:09] LABS: CALCIUM 8.7 mg/dl (8.4-10.2)
[2016-09-03 08:25] VITALS: BP 136/63; RESP 19
[2016-09-03] MEDS: INSULIN ASPART [NOVOLOG] 3 ML PEN SC SCH ×7 (08:25→20:30)
[2016-09-03] MEDS: INSULIN GLARGINE [LANtus] 3 ML PEN SC SCH (08:26)
[2016-09-03] MEDS: ENOXAPARIN 40 MG/0.4 ML SYG SC SCH (08:27)
[2016-09-03] MEDS: FAMOTIDINE 20 MG TAB PO SCH ×2 (08:27→20:22)
[2016-09-03] MEDS: LISINOPRIL 5 MG TAB PO SCH (08:28)
--- NOTE | 2016-09-03 14:30 | CONS ---
Date/Time of Note Date/Time of Note DATE: 09/03/16 TIME: 14:29 Consult Date/Type/Reason Admit Date/Time Aug 26, 2016 at 05:05 Type of Consultation: ID Subjective no acute changes, no fevers, nad Objective Vital Signs Date Time Temp Pulse Resp B/P Pulse Ox O2 Delivery O2 Flow Rate FiO2 09/03/16 08:25 98.3 81 19 136/63 95 Intake and Output 09/02/16 09/02/16 09/03/16 15:00 23:00 07:00 Intake Total 250 ml 1980 ml 430 ml Balance 250 ml 1980 ml 430 ml Results/Medications Result Diagram: 09/03/16 0507 09/03/16 0507 Results 24 hrs Laboratory Tests Test 09/02/16 16:31 09/02/16 20:19 09/03/16 01:42 09/03/16 05:07 Bedside Glucose 113 187 152 Anion Gap 16 Basophils # 0.0 Basophils % 0.1 Blood Morphology Comment Blood Urea Nitrogen 11 Calcium Level 8.7 Carbon Dioxide Level 24 Chloride Level 101 Creatinine 0.55 L Eosinophils # 0.5 Eosinophils % 5.1 Glucose Level 159 Hematocrit 31.4 L Hemoglobin 11.1 L Lymphocytes # 0.9 Lymphocytes % 10.3 L Mean Corpuscular Hemoglobin 31.2 Mean Corpuscular Hemoglobin Concent 35.2 Mean Corpuscular Volume 88.7 Mean Platelet Volume 6.2 L Monocytes # 1.0 H Monocytes % 10.4 Neutrophils # 6.8 Neutrophils % 74.1 Nucleated Red Blood Cells # 0.0 Nucleated Red Blood Cells % 0.0 Platelet Count 441 H Potassium Level 4.0 Red Blood Count 3.54 L Red Cell Distribution Width 12.6 Sodium Level 137 White Blood Count 9.1 Test 09/03/16 07:32 09/03/16 11:37 Bedside Glucose 156 162 Medications Current Medications Insulin Glargine (Lantus) 15 unit QAM SC Last administered on 09/03/16 08:26; Admin Dose 15 UNIT; Start 08/26/16 at 09:00 Diagnostic Test (Pha) (Accucheck) 1 ea 02 XX Last administered on 09/03/16 02: 00; Admin Dose 1 EA; Start 08/27/16 at 02:00 Miscellaneous Information 1 ea NOTE XX ; Start 08/26/16 at 07:00 Glucose (Glutose) 15 gm Q15M PRN PO DECREASED GLUCOSE; Start 08/26/16 at 07:00 Glucose (Glutose) 22.5 gm Q15M PRN PO DECREASED GLUCOSE; Start 08/26/16 at 07: 00 Dextrose (D50w Syringe) 25 ml Q15M PRN IV DECREASED GLUCOSE; Start 08/26/16 at 07:00 Dextrose (D50w Syringe) 50 ml Q15M PRN IV DECREASED GLUCOSE; Start 08/26/16 at 07:00 Glucagon (Glucagen) 1 mg Q15M PRN IM DECREASED GLUCOSE; Start 08/26/16 at 07: 00 Glucose (Glutose) 15 gm Q15M PRN BUCCAL DECREASED GLUCOSE; Start 08/26/16 at 07:00 Morphine Sulfate (morphine) 2 mg Q4H PRN IV 8-10 Pain level Last administered on 09/02/16 12:16; Admin Dose 2 MG; Start 08/26/16 at 20:30 Lisinopril (Zestril) 5 mg DAILY PO Last administered on 09/03/16 08:28; Admin Dose 5 MG; Start 08/28/16 at 09:00 Enoxaparin Sodium (Lovenox) 40 mg DAILY SC Last administered on 09/03/16 08:27 ; Admin Dose 40 MG; Start 08/28/16 at 09:00 Famotidine 20 mg 20 mg BID PO Last administered on 09/03/16 08:27; Admin Dose 20 MG; Start 08/27/16 at 21:00 Ceftriaxone Sodium 50 ml @ 100 mls/hr Q24H IVPB Last administered on 09/02/16 16:12; Admin Dose 100 MLS/HR; Start 08/27/16 at 17:00 Vancomycin HCl/ Sodium Chloride (Vancocin/NS) 250 ml @ 83.333 mls/ hr Q8H IVPB Last administered on 09/03/16 08:27; Admin Dose 83.333 MLS/HR; Start 08/29/16 at 17:00 IV Flush (NS 10 ml) 10 ml PRN PRN IV IV PROTOCOL; Start 08/29/16 at 19:00 Assessment/Plan Chief Complaint/Hosp Course INDWELLINGS: PICC. ANTIMICROBIALS: 1. IV vancomycin 2. IV Rocephin. PHYSICAL EXAMINATION: GENERAL: Obese, well-developed elderly man who is awake, in no distress. HEENT: Head atraumatic, normocephalic. Sclerae anicteric. Buccal mucosa dry. NECK: Supple. CHEST: Rise symmetrical. Breath sounds clear. HEART: S1, S2. ABDOMEN: Distended, soft. Bowel tones present. EXTREMITIES: Right knee still with swelling and erythema ASSESSMENT: 1. Right knee cellulitis with effusion, possible prepatellar bursitis. 2. Diabetes. 3. Anemia 4. SAMIA superficial cephalic thrombosis PLAN: Remains stable. Continue abx, RLE elevation, warm compresses, complete antibiotics for a total of 2 weeks, f/u with ortho DW staff DW pt Problems: JIMI BARLOW NP Sep 03, 2016 14:30
--- NOTE | 2016-09-03 14:49 | PN ---
Date/Time of Note Date/Time of Note DATE: 09/03/16 TIME: 14:47 Assessment/Plan VTE Prophylaxis VTE Prophylaxis Intervention: LMWH Lines/Catheters IV Catheter Type (from Nrsg): PICC Line Urinary Cath still in place: No Assessment/Plan Chief Complaint/Hosp Course Assessment and plan 1. right knee cellulitis with suspect underlying effusion within the right knee. Continue antibiotics per ID recommendations. Patient seen by orthopedic surgeon. No plan for orthopedic intervention at this time. Continue supportive care. 2. Type 2 diabetes. Patient noted with A1c of 8.3. Continue on insulin regimen. Will adjust as needed 3. History of nicotine use. Nicotine cessation advised 4. Essential hypertension. Continue on anti-hypertensives and adjust as needed 5. anemia. Patient noted with iron deficiency. Continue iron supplement DVT prophylaxis: Lovenox GERD prophylaxis: H2 teresa Disposition and plan: Continue antibiotics. Awaiting authorization for home iv abx. Will d/c once set up . cont supportive care. analgesics as needed Discussed plan of care with Dr. Gallo Problems: Subjective 24 Hr Interval Summary Free Text/Dictation comfortable. no reports of pain on right knee Exam/Review of Systems Vital Signs Vitals Vital Signs Date Time Temp Pulse Resp B/P Pulse Ox O2 Delivery O2 Flow Rate FiO2 09/03/16 08:25 98.3 81 19 136/63 95 Intake and Output 09/02/16 09/02/16 09/03/16 15:00 23:00 07:00 Intake Total 250 ml 1980 ml 430 ml Balance 250 ml 1980 ml 430 ml Exam General: No acute signs or symptoms of distress Eyes: pupils equal round, Anicteric sclera Neck: Supple nontender, no JVD Cardiac: S1, S2 auscultated, regular rhythm and rate Pulmonary: No coarse rhonchi or breathing auscultated GI: Abdomen soft nontender nondistended, bowel sounds active Extremities: Swollen right knee, little less . Little erythematous Skin: Clean dry and intact Neurologic: Alert to person place and time and situation Results Result Diagram: 09/03/16 0507 09/03/16 0507 Results 24 hrs Laboratory Tests Test 09/02/16 16:31 09/02/16 20:19 09/03/16 01:42 09/03/16 05:07 Bedside Glucose 113 187 152 Anion Gap 16 Basophils # 0.0 Basophils % 0.1 Blood Morphology Comment Blood Urea Nitrogen 11 Calcium Level 8.7 Carbon Dioxide Level 24 Chloride Level 101 Creatinine 0.55 L Eosinophils # 0.5 Eosinophils % 5.1 Glucose Level 159 Hematocrit 31.4 L Hemoglobin 11.1 L Lymphocytes # 0.9 Lymphocytes % 10.3 L Mean Corpuscular Hemoglobin 31.2 Mean Corpuscular Hemoglobin Concent 35.2 Mean Corpuscular Volume 88.7 Mean Platelet Volume 6.2 L Monocytes # 1.0 H Monocytes % 10.4 Neutrophils # 6.8 Neutrophils % 74.1 Nucleated Red Blood Cells # 0.0 Nucleated Red Blood Cells % 0.0 Platelet Count 441 H Potassium Level 4.0 Red Blood Count 3.54 L Red Cell Distribution Width 12.6 Sodium Level 137 White Blood Count 9.1 Test 09/03/16 07:32 09/03/16 11:37 Bedside Glucose 156 162 Medications Medications Current Medications Insulin Glargine (Lantus) 15 unit QAM SC Last administered on 09/03/16 08:26; Admin Dose 15 UNIT; Start 08/26/16 at 09:00 Diagnostic Test (Pha) (Accucheck) 1 ea 02 XX Last administered on 09/03/16 02: 00; Admin Dose 1 EA; Start 08/27/16 at 02:00 Miscellaneous Information 1 ea NOTE XX ; Start 08/26/16 at 07:00 Glucose (Glutose) 15 gm Q15M PRN PO DECREASED GLUCOSE; Start 08/26/16 at 07:00 Glucose (Glutose) 22.5 gm Q15M PRN PO DECREASED GLUCOSE; Start 08/26/16 at 07: 00 Dextrose (D50w Syringe) 25 ml Q15M PRN IV DECREASED GLUCOSE; Start 08/26/16 at 07:00 Dextrose (D50w Syringe) 50 ml Q15M PRN IV DECREASED GLUCOSE; Start 08/26/16 at 07:00 Glucagon (Glucagen) 1 mg Q15M PRN IM DECREASED GLUCOSE; Start 08/26/16 at 07: 00 Glucose (Glutose) 15 gm Q15M PRN BUCCAL DECREASED GLUCOSE; Start 08/26/16 at 07:00 Morphine Sulfate (morphine) 2 mg Q4H PRN IV 8-10 Pain level Last administered on 09/02/16 12:16; Admin Dose 2 MG; Start 08/26/16 at 20:30 Lisinopril (Zestril) 5 mg DAILY PO Last administered on 09/03/16 08:28; Admin Dose 5 MG; Start 08/28/16 at 09:00 Enoxaparin Sodium (Lovenox) 40 mg DAILY SC Last administered on 09/03/16 08:27 ; Admin Dose 40 MG; Start 08/28/16 at 09:00 Famotidine 20 mg 20 mg BID PO Last administered on 09/03/16 08:27; Admin Dose 20 MG; Start 08/27/16 at 21:00 Ceftriaxone Sodium 50 ml @ 100 mls/hr Q24H IVPB Last administered on 09/02/16 16:12; Admin Dose 100 MLS/HR; Start 08/27/16 at 17:00 Vancomycin HCl/ Sodium Chloride (Vancocin/NS) 250 ml @ 83.333 mls/ hr Q8H IVPB Last administered on 09/03/16 08:27; Admin Dose 83.333 MLS/HR; Start 08/29/16 at 17:00 IV Flush (NS 10 ml) 10 ml PRN PRN IV IV PROTOCOL; Start 08/29/16 at 19:00 YARELIS ABRAMS Sep 03, 2016 14:49
[2016-09-03] MEDS: morphine 2 MG INJ IV PRN ×2 (15:57→23:43)
[2016-09-03] MEDS: CEFTRIAXONE 1 GM/50 ML (PMX) 50 ML IVPB SCH (16:16)
[2016-09-03 21:12] VITALS: BP 157/71; RESP 20
[2016-09-04 00:13] VITALS: BP 143/82
[2016-09-04] MEDS: VANCOMYCIN 1.25 GM in SOD CHLORIDE 0.9% 250 ML IVPB SCH ×3 (01:21→17:36)
[2016-09-04] MEDS: ACCUCHECK XX SCH (01:39)
--- NOTE | 2016-09-04 04:06 | ERA ---
DATE OF SERVICE: 08/26/2016 HISTORY OF PRESENT ILLNESS: This 70-year-old male presents to the emergency room with right knee pa in and swelling that has been getting worse for several days. He is at the point where he says he c annot comfortably walk. He denies any wounds to the area and stated that it actually started lower on his leg and started to spread upwards on the skin. He has no fevers or chills and states that he can put his weight on his leg fine without pain, but when he tries to bend the knee in any way, it hurts badly. He has had no trauma to the area. REVIEW OF SYSTEMS: A 10-point review of systems negative except as in the HPI. PAST MEDICAL HISTORY: Diabetes. PAST SURGICAL HISTORY: Negative. FAMILY HISTORY: Noncontributory to infection. SOCIAL HISTORY: The patient has been a daily cigarette smoker and does not use alcohol or other elias gs. PHYSICAL EXAMINATION VITAL SIGNS: Temperature 98.3, pulse 94, blood pressure 179/90, respirations 20, oxygen saturation 99% on room air. GENERAL: No acute distress. The patient does seem to be in some discomfort. HEENT: Normocephalic, atraumatic. Mucous membranes moist. CARDIAC: Regular rate and rhythm. No murmurs. LUNGS: Clear to auscultation bilaterally. ABDOMEN: Soft, nontender, nondistended, no masses. NEUROLOGIC: Alert and oriented x3 with no focal deficits. VASCULAR: Distal pulses intact in all 4 extremities. EXTREMITIES: Right thigh and lower leg area crossing knee with significant erythema, swelling, and . The area of erythema and swelling reaches around the leg but not quite circumferential as th ere is a 3 cm area of sparing before the two edges of redness meet. The patient has no tenderness o n pushing on the patella itself. He does have limited range of motion secondary to pain. Does not have pain on axial load. DIAGNOSTIC DATA: CBC significant for white count of 15, hemoglobin is 11.9 with normocytic anemia. BMP significant only for a glucose of 292. Liver function tests within normal limits. Troponin is negative. Mild elevation of alkaline phosphatase at 126. Coagulation studies are within normal li mits with an INR of 1.07. Urinalysis negative for infection. Right knee x-ray interpretation by my self, I see no fracture or dislocation, degenerative joint disease of the knee, soft tissue swelling is evident in front of the knee joint. Lactic acid is not significantly elevated. EMERGENCY DEPARTMENT COURSE AND MEDICAL DECISION MAKING: This is a diabetic, elderly male with sign ificantly severe cellulitis of his right lower extremity. I do believe that it was not appropriate to try to treat it with outpatient antibiotics. Vancomycin and Rocephin were given immediately. Th e patient was also hydrated with a liter of normal saline. No signs of sepsis. He was also given Z ofran for nausea. He was given diclofenac IV which helped reduce his pain. I spoke with Dr. Yang newell o will be admitting the patient to med/surg floor for further antibiotic therapy of this potentially limb threatening injury. ADMISSION DIAGNOSES: 1. Severe cellulitis of the right leg. 2. Diabetes. DISPOSITION: Admitted in stable condition. Dictated By: EDDIE NEGRETE/JENS Conf#: [id number] DID#: [id number]
[2016-09-04 05:52] LABS: BASOPHILS % 0.2 % (0.0-2.0); EOSINOPHILS # 0.4 10^3/ul (0.0-0.5); EOSINOPHILS % 5.5 % (0.0-7.0); HEMOGLOBIN 10.8 g/dl (14.0-18.0); LYMPHOCYTES # 0.9 10^3/ul (0.8-2.9); LYMPHOCYTES % 12.1 % (15.0-51.0); MEAN CORPUSCULAR HEMOGLOBIN 31.4 pg (29.0-33.0); MEAN CORPUSCULAR HGB CONC 34.9 g/dl (32.0-37.0); MEAN CORPUSCULAR VOLUME 89.9 fl (82.0-101.0); MEAN PLATELET VOLUME 6.3 fl (7.4-10.4); MONOCYTE # 0.7 10^3/ul (0.3-0.9); NEUTROPHIL # 5.7 10^3/ul (1.6-7.5); NEUTROPHILS % 73.2 % (39.0-77.0); PLATELET COUNT 417 10^3/UL (140-440); RED BLOOD COUNT 3.44 10^6/ul (4.70-6.10); RED CELL DISTRIBUTION WIDTH 12.6 % (11.5-14.5); UNCORRECTED WBC 7.8 10^3/ul (4.8-10.8); WHITE BLOOD COUNT 7.8 10^3/ul (4.8-10.8)
[2016-09-04 05:58] LABS: CONDITION 1
[2016-09-04 06:15] LABS: POTASSIUM 3.9 mmol/L (3.5-5.1)
[2016-09-04 06:17] LABS: CREATININE 0.54 mg/dl (0.61-1.24)
[2016-09-04 06:18] LABS: CALCIUM 8.6 mg/dl (8.4-10.2)
[2016-09-04 07:39] VITALS: BP 127/59; RESP 16
[2016-09-04] MEDS: INSULIN ASPART [NOVOLOG] 3 ML PEN SC SCH ×7 (08:48→20:25)
[2016-09-04] MEDS: INSULIN GLARGINE [LANtus] 3 ML PEN SC SCH (08:52)
[2016-09-04] MEDS: ENOXAPARIN 40 MG/0.4 ML SYG SC SCH (08:53)
[2016-09-04] MEDS: FAMOTIDINE 20 MG TAB PO SCH ×2 (08:54→20:25)
[2016-09-04] MEDS: LISINOPRIL 5 MG TAB PO SCH (08:54)
--- NOTE | 2016-09-04 12:10 | CONS ---
Date/Time of Note Date/Time of Note DATE: 09/04/16 TIME: 12:08 Consult Date/Type/Reason Admit Date/Time Aug 26, 2016 at 05:05 Type of Consultation: ID Subjective alert, feels good, no sob/n/v/d/fevers Objective Vital Signs Date Time Temp Pulse Resp B/P Pulse Ox O2 Delivery O2 Flow Rate FiO2 09/04/16 07:39 98.7 74 16 127/59 96 Intake and Output 09/03/16 09/03/16 09/04/16 15:00 23:00 07:00 Intake Total 1440 ml 740 ml Balance 1440 ml 740 ml Results/Medications Result Diagram: 09/04/16 0445 09/04/16 0445 Results 24 hrs Laboratory Tests Test 09/03/16 17:04 09/03/16 20:26 09/04/16 01:34 09/04/16 04:45 Bedside Glucose 117 182 109 Anion Gap 16 Basophils # 0.0 Basophils % 0.2 Blood Morphology Comment Blood Urea Nitrogen 12 Calcium Level 8.6 Carbon Dioxide Level 26 Chloride Level 100 Creatinine 0.54 L Eosinophils # 0.4 Eosinophils % 5.5 Glucose Level 111 # Hematocrit 31.0 L Hemoglobin 10.8 L Lymphocytes # 0.9 Lymphocytes % 12.1 L Mean Corpuscular Hemoglobin 31.4 Mean Corpuscular Hemoglobin Concent 34.9 Mean Corpuscular Volume 89.9 Mean Platelet Volume 6.3 L Monocytes # 0.7 Monocytes % 9.0 Neutrophils # 5.7 Neutrophils % 73.2 Nucleated Red Blood Cells # 0.0 Nucleated Red Blood Cells % 0.0 Platelet Count 417 Potassium Level 3.9 Red Blood Count 3.44 L Red Cell Distribution Width 12.6 Sodium Level 138 White Blood Count 7.8 Test 09/04/16 08:13 09/04/16 11:33 Bedside Glucose 153 179 Medications Current Medications Insulin Glargine (Lantus) 15 unit QAM SC Last administered on 09/04/16 08:52; Admin Dose 15 UNIT; Start 08/26/16 at 09:00 Diagnostic Test (Pha) (Accucheck) 1 ea 02 XX Last administered on 09/03/16 02: 00; Admin Dose 1 EA; Start 08/27/16 at 02:00 Miscellaneous Information 1 ea NOTE XX ; Start 08/26/16 at 07:00 Glucose (Glutose) 15 gm Q15M PRN PO DECREASED GLUCOSE; Start 08/26/16 at 07:00 Glucose (Glutose) 22.5 gm Q15M PRN PO DECREASED GLUCOSE; Start 08/26/16 at 07: 00 Dextrose (D50w Syringe) 25 ml Q15M PRN IV DECREASED GLUCOSE; Start 08/26/16 at 07:00 Dextrose (D50w Syringe) 50 ml Q15M PRN IV DECREASED GLUCOSE; Start 08/26/16 at 07:00 Glucagon (Glucagen) 1 mg Q15M PRN IM DECREASED GLUCOSE; Start 08/26/16 at 07: 00 Glucose (Glutose) 15 gm Q15M PRN BUCCAL DECREASED GLUCOSE; Start 08/26/16 at 07:00 Morphine Sulfate (morphine) 2 mg Q4H PRN IV 8-10 Pain level Last administered on 09/03/16 23:43; Admin Dose 2 MG; Start 08/26/16 at 20:30 Lisinopril (Zestril) 5 mg DAILY PO Last administered on 09/04/16 08:54; Admin Dose 5 MG; Start 08/28/16 at 09:00 Enoxaparin Sodium (Lovenox) 40 mg DAILY SC Last administered on 09/04/16 08:53 ; Admin Dose 40 MG; Start 08/28/16 at 09:00 Famotidine 20 mg 20 mg BID PO Last administered on 09/04/16 08:54; Admin Dose 20 MG; Start 08/27/16 at 21:00 Ceftriaxone Sodium 50 ml @ 100 mls/hr Q24H IVPB Last administered on 09/03/16 16:16; Admin Dose 100 MLS/HR; Start 08/27/16 at 17:00 Vancomycin HCl/ Sodium Chloride (Vancocin/NS) 250 ml @ 83.333 mls/ hr Q8H IVPB Last administered on 09/04/16 08:54; Admin Dose 83.333 MLS/HR; Start 08/29/16 at 17:00 IV Flush (NS 10 ml) 10 ml PRN PRN IV IV PROTOCOL; Start 08/29/16 at 19:00 Assessment/Plan Chief Complaint/Hosp Course INDWELLINGS: PICC. ANTIMICROBIALS: 1. IV vancomycin 2. IV Rocephin. PHYSICAL EXAMINATION: GENERAL: Obese, well-developed elderly man who is awake, in no distress. HEENT: Head atraumatic, normocephalic. Sclerae anicteric. Buccal mucosa dry. NECK: Supple. CHEST: Rise symmetrical. Breath sounds clear. HEART: S1, S2. ABDOMEN: Distended, soft. Bowel tones present. EXTREMITIES: Right knee still with swelling and erythema ASSESSMENT: 1. Right knee cellulitis with effusion, possible prepatellar bursitis====> improving, with good ROM. 2. Diabetes. 3. Anemia 4. SAMIA superficial cephalic thrombosis PLAN: Remains stable. Continue abx for 2 weeks total, keep RLE elevation DW staff DW pt Problems: JIMI BARLOW NP Sep 04, 2016 12:09
--- NOTE | 2016-09-04 13:36 | PN ---
Date/Time of Note Date/Time of Note DATE: 09/04/16 TIME: 13:35 Assessment/Plan VTE Prophylaxis VTE Prophylaxis Intervention: LMWH Lines/Catheters IV Catheter Type (from Nrsg): Peripheral IV Urinary Cath still in place: No Assessment/Plan Chief Complaint/Hosp Course Assessment and plan 1. right knee cellulitis with suspect underlying effusion within the right knee. Continue antibiotics per ID recommendations. Patient seen by orthopedic surgeon. No plan for orthopedic intervention at this time. Continue supportive care. 2. Type 2 diabetes. Patient noted with A1c of 8.3. Continue on insulin regimen. Will adjust as needed 3. History of nicotine use. Nicotine cessation advised 4. Essential hypertension. Continue on anti-hypertensives and adjust as needed 5. anemia. Patient noted with iron deficiency. Continue iron supplement DVT prophylaxis: Lovenox GERD prophylaxis: H2 teresa Disposition and plan: Continue antibiotics. Awaiting authorization for home iv abx. Will d/c once set up .check am lab Discussed plan of care with Dr. Rogers Problems: Subjective 24 Hr Interval Summary Free Text/Dictation less pain right knee. no s/s of distress Exam/Review of Systems Vital Signs Vitals Vital Signs Date Time Temp Pulse Resp B/P Pulse Ox O2 Delivery O2 Flow Rate FiO2 09/04/16 07:39 98.7 74 16 127/59 96 Intake and Output 09/03/16 09/03/16 09/04/16 15:00 23:00 07:00 Intake Total 1440 ml 740 ml Balance 1440 ml 740 ml Exam General: No acute signs or symptoms of distress Eyes: pupils equal round, Anicteric sclera Neck: Supple nontender, no JVD Cardiac: S1, S2 auscultated, regular rhythm and rate Pulmonary: No coarse rhonchi or breathing auscultated GI: Abdomen soft nontender nondistended, bowel sounds active Extremities: Swollen right knee, little less . Little erythematous Skin: Clean dry and intact Neurologic: Alert to person place and time and situation Results Result Diagram: 09/04/16 0445 09/04/16 0445 Results 24 hrs Laboratory Tests Test 09/03/16 17:04 09/03/16 20:26 09/04/16 01:34 09/04/16 04:45 Bedside Glucose 117 182 109 Anion Gap 16 Basophils # 0.0 Basophils % 0.2 Blood Morphology Comment Blood Urea Nitrogen 12 Calcium Level 8.6 Carbon Dioxide Level 26 Chloride Level 100 Creatinine 0.54 L Eosinophils # 0.4 Eosinophils % 5.5 Glucose Level 111 # Hematocrit 31.0 L Hemoglobin 10.8 L Lymphocytes # 0.9 Lymphocytes % 12.1 L Mean Corpuscular Hemoglobin 31.4 Mean Corpuscular Hemoglobin Concent 34.9 Mean Corpuscular Volume 89.9 Mean Platelet Volume 6.3 L Monocytes # 0.7 Monocytes % 9.0 Neutrophils # 5.7 Neutrophils % 73.2 Nucleated Red Blood Cells # 0.0 Nucleated Red Blood Cells % 0.0 Platelet Count 417 Potassium Level 3.9 Red Blood Count 3.44 L Red Cell Distribution Width 12.6 Sodium Level 138 White Blood Count 7.8 Test 09/04/16 08:13 09/04/16 11:33 Bedside Glucose 153 179 Medications Medications Current Medications Insulin Glargine (Lantus) 15 unit QAM SC Last administered on 09/04/16 08:52; Admin Dose 15 UNIT; Start 08/26/16 at 09:00 Diagnostic Test (Pha) (Accucheck) 1 ea 02 XX Last administered on 09/03/16 02: 00; Admin Dose 1 EA; Start 08/27/16 at 02:00 Miscellaneous Information 1 ea NOTE XX ; Start 08/26/16 at 07:00 Glucose (Glutose) 15 gm Q15M PRN PO DECREASED GLUCOSE; Start 08/26/16 at 07:00 Glucose (Glutose) 22.5 gm Q15M PRN PO DECREASED GLUCOSE; Start 08/26/16 at 07: 00 Dextrose (D50w Syringe) 25 ml Q15M PRN IV DECREASED GLUCOSE; Start 08/26/16 at 07:00 Dextrose (D50w Syringe) 50 ml Q15M PRN IV DECREASED GLUCOSE; Start 08/26/16 at 07:00 Glucagon (Glucagen) 1 mg Q15M PRN IM DECREASED GLUCOSE; Start 08/26/16 at 07: 00 Glucose (Glutose) 15 gm Q15M PRN BUCCAL DECREASED GLUCOSE; Start 08/26/16 at 07:00 Morphine Sulfate (morphine) 2 mg Q4H PRN IV 8-10 Pain level Last administered on 09/03/16 23:43; Admin Dose 2 MG; Start 08/26/16 at 20:30 Lisinopril (Zestril) 5 mg DAILY PO Last administered on 09/04/16 08:54; Admin Dose 5 MG; Start 08/28/16 at 09:00 Enoxaparin Sodium (Lovenox) 40 mg DAILY SC Last administered on 09/04/16 08:53 ; Admin Dose 40 MG; Start 08/28/16 at 09:00 Famotidine 20 mg 20 mg BID PO Last administered on 09/04/16 08:54; Admin Dose 20 MG; Start 08/27/16 at 21:00 Ceftriaxone Sodium 50 ml @ 100 mls/hr Q24H IVPB Last administered on 09/03/16 16:16; Admin Dose 100 MLS/HR; Start 08/27/16 at 17:00 Vancomycin HCl/ Sodium Chloride (Vancocin/NS) 250 ml @ 83.333 mls/ hr Q8H IVPB Last administered on 09/04/16 08:54; Admin Dose 83.333 MLS/HR; Start 08/29/16 at 17:00 IV Flush (NS 10 ml) 10 ml PRN PRN IV IV PROTOCOL; Start 08/29/16 at 19:00 Miscellaneous Information (*Rx Drug Level Order Reminder*) 1 ONCE ONCE XX ; Start 09/05/16 at 08:00; Stop 09/05/16 at 08:01 YARELIS ABRAMS Sep 04, 2016 13:36
[2016-09-04] MEDS: CEFTRIAXONE 1 GM/50 ML (PMX) 50 ML IVPB SCH (16:44)
[2016-09-04 20:33] VITALS: BP 149/67; RESP 17
[2016-09-05] MEDS: VANCOMYCIN 1.25 GM in SOD CHLORIDE 0.9% 250 ML IVPB SCH ×2 (00:27→10:09)
[2016-09-05] MEDS: ACCUCHECK XX SCH (01:34)
[2016-09-05] MEDS: INSULIN ASPART [NOVOLOG] 3 ML PEN SC SCH ×7 (07:52→20:47)
[2016-09-05] MEDS: ENOXAPARIN 40 MG/0.4 ML SYG SC SCH (07:53)
[2016-09-05] MEDS: FAMOTIDINE 20 MG TAB PO SCH ×2 (07:53→20:45)
[2016-09-05 08:24] VITALS: BP 128/59; RESP 16
[2016-09-05] MEDS: LISINOPRIL 5 MG TAB PO SCH (09:18)
[2016-09-05] MEDS: INSULIN GLARGINE [LANtus] 3 ML PEN SC SCH (09:19)
--- NOTE | 2016-09-05 13:46 | CONS ---
Date/Time of Note Date/Time of Note DATE: 09/05/16 TIME: 13:44 Consult Date/Type/Reason Admit Date/Time Aug 26, 2016 at 05:05 Type of Consultation: ID Subjective alert, feels good, no fevers, nad Objective Vital Signs Date Time Temp Pulse Resp B/P Pulse Ox O2 Delivery O2 Flow Rate FiO2 09/05/16 08:24 98.1 74 16 128/59 93 Intake and Output 09/04/16 09/04/16 09/05/16 15:00 23:00 07:00 Intake Total 1130 ml 690 ml Balance 1130 ml 690 ml Results/Medications Result Diagram: 09/04/16 0445 09/04/16 0445 Results 24 hrs Laboratory Tests Test 09/04/16 16:43 09/04/16 19:41 09/05/16 07:27 09/05/16 08:30 Bedside Glucose 118 153 130 Vancomycin Level Trough 15.5 Test 09/05/16 11:35 Bedside Glucose 187 Medications Current Medications Insulin Glargine (Lantus) 15 unit QAM SC Last administered on 09/05/16 09:19; Admin Dose 15 UNIT; Start 08/26/16 at 09:00 Diagnostic Test (Pha) (Accucheck) 1 ea 02 XX Last administered on 09/03/16 02: 00; Admin Dose 1 EA; Start 08/27/16 at 02:00 Miscellaneous Information 1 ea NOTE XX ; Start 08/26/16 at 07:00 Glucose (Glutose) 15 gm Q15M PRN PO DECREASED GLUCOSE; Start 08/26/16 at 07:00 Glucose (Glutose) 22.5 gm Q15M PRN PO DECREASED GLUCOSE; Start 08/26/16 at 07: 00 Dextrose (D50w Syringe) 25 ml Q15M PRN IV DECREASED GLUCOSE; Start 08/26/16 at 07:00 Dextrose (D50w Syringe) 50 ml Q15M PRN IV DECREASED GLUCOSE; Start 08/26/16 at 07:00 Glucagon (Glucagen) 1 mg Q15M PRN IM DECREASED GLUCOSE; Start 08/26/16 at 07: 00 Glucose (Glutose) 15 gm Q15M PRN BUCCAL DECREASED GLUCOSE; Start 08/26/16 at 07:00 Morphine Sulfate (morphine) 2 mg Q4H PRN IV 8-10 Pain level Last administered on 09/03/16 23:43; Admin Dose 2 MG; Start 08/26/16 at 20:30 Lisinopril (Zestril) 5 mg DAILY PO Last administered on 09/05/16 09:18; Admin Dose 5 MG; Start 08/28/16 at 09:00 Enoxaparin Sodium (Lovenox) 40 mg DAILY SC Last administered on 09/05/16 07:53 ; Admin Dose 40 MG; Start 08/28/16 at 09:00 Famotidine 20 mg 20 mg BID PO Last administered on 09/05/16 07:53; Admin Dose 20 MG; Start 08/27/16 at 21:00 Ceftriaxone Sodium 50 ml @ 100 mls/hr Q24H IVPB Last administered on 09/04/16 16:44; Admin Dose 100 MLS/HR; Start 08/27/16 at 17:00 Vancomycin HCl/ Sodium Chloride (Vancocin/NS) 250 ml @ 83.333 mls/ hr Q8H IVPB Last administered on 09/05/16 10:09; Admin Dose 83.333 MLS/HR; Start 08/29/16 at 17:00 IV Flush (NS 10 ml) 10 ml PRN PRN IV IV PROTOCOL; Start 08/29/16 at 19:00 Assessment/Plan Chief Complaint/Hosp Course INDWELLINGS: PICC. ANTIMICROBIALS: 1. IV vancomycin 2. IV Rocephin. PHYSICAL EXAMINATION: GENERAL: Obese, well-developed elderly man who is awake, in no distress. HEENT: Head atraumatic, normocephalic. Sclerae anicteric. Buccal mucosa dry. NECK: Supple. CHEST: Rise symmetrical. Breath sounds clear. HEART: S1, S2. ABDOMEN: Distended, soft. Bowel tones present. EXTREMITIES: Right knee still with swelling and erythema ASSESSMENT: 1. Right knee cellulitis with effusion, possible prepatellar bursitis====> improving, with good ROM. 2. Diabetes. 3. Anemia 4. SAMIA superficial cephalic thrombosis PLAN: Continues to improve, complete abx, keep RLE elevated, continue PT DW staff Problems: JIMI BARLOW NP Sep 05, 2016 13:45
--- NOTE | 2016-09-05 14:40 | DS ---
Date/Time of Note Date/Time of Note DATE: 09/05/16 TIME: 14:35 Discharge Summary Admission/Discharge Info Admit Date/Time Aug 26, 2016 at 05:05 Discharge Date/Time Final Diagnosis 1. right knee cellulitis with suspect underlying effusion within the right knee. 2. Type 2 diabetes. 3. History of nicotine use. 4. Essential hypertension. 5. anemia. Patient noted with iron deficiency. Patient Condition: Stable Consults 1. Dr. Zeke Tillman-Rad 2. Dr. Avtar Rubi Hx of Present Illness PRESENTING COMPLAINT: R knee pain HISTORY OF PRESENTING COMPLAINT: 70 yo M with a hx of DM and chronic tobacco use who presents with R knee pain and swelling. Hospital Course This is a 70-year-old male with history of diabetes and chronic tobacco use he came to [facility] due to reports of right knee pain and swelling. No reports of patient following. He was seen by infectious disease physician as well as by orthopedic surgeon. Patient did have for any x-ray that did show moderate osteoarthrosis involving the right patellofemoral compartment as well as right prepatellar soft tissue swelling. Patient was continued with antibiotics per ID consult and he was optimized on analgesics. After review by orthopedic surgeon likely patient did not have any kind of septic joint and therefore it was recommended per surgeon for no surgical intervention. He was optimized on IV antibiotics. During his course of stay did improve. His left knee swelling did subside although he still has some swelling on the day of his discharge. He was continued on insulin regimen for his type 2 diabetes and he was advised against cigarette smoking. She is continued on antihypertensives for his hypertension and he was placed on iron supplement for iron deficiency anemia. Patient did have lengthy stay due to insurance issue of getting his antibiotics for home. Case management was involved. We finally were able to get patient home IV antibiotics on the day of his discharge. The plan of care was discussed with the patient and patient did verbalize understanding. On the day of discharge patient was in stable condition Discussed plan of care with Disposition: home Home Meds Active Scripts Insulin Aspart* (Novolog Insulin Pen*) 100 Unit/Ml Soln, 5 UNIT SC WITH MEALS for 30 Days Prov:YARELIS ABRAMS 08/29/16 Insulin Glargine* (Lantus*) 100 Unit/Ml Soln, 20 UNIT SC QAM for 30 Days Prov:YARELIS ABRAMS 08/29/16 Ferrous Sulfate* (Ferrous Sulfate*) 325 Mg Tabec, 325 MG PO TID for 30 Days, TAB Prov:YARELIS ABRAMS 08/29/16 Vancomycin/0.9 % Sod Chloride (Vanco 1.25 gm/250 ml-0.9% NaCl) 1.25 Gm/250 Ml Plast..bag, 1.25 GM IV TID for 14 Days Prov:YARELIS ABRAMS 08/29/16 Lisinopril* (Lisinopril*) 5 Mg Tablet, 5 MG PO DAILY for 30 Days, TAB Prov:YARELIS ABRAMS 08/29/16 Ceftriaxone Na/Dextrose,Iso (Ceftriaxone 1 gm Piggyback) 1 Gm/50 Ml Froz.piggy, 1 GM IV DAILY for 14 Days Prov:YARELIS ABRAMS 08/29/16 Follow-up Plan CONDITION Patient Condition: Stable HOME CARE INSTRUCTIONS: Special Diet: 1800 ADAYour diet recommendation is: carbohydrate controlled FOLLOW UP/APPOINTMENTS Appointments 1. Follow-up with your primary care provider within a week OTHER ORDERS: Other Orders: Call your primary care provider. Worsening right knee pain or swelling Pending Labs Laboratory Tests Test 09/04/16 16:43 09/04/16 19:41 09/05/16 07:27 09/05/16 08:30 Bedside Glucose 118mg/dL (70-220) 153mg/dL (70-220) 130mg/dL (70-220) Vancomycin Level Trough 15.5ug/ml (10.0-20.0) Test 09/05/16 11:35 Bedside Glucose 187mg/dL (70-220) YARELIS ABRAMS Sep 05, 2016 14:40
[2016-09-05] MEDS: CEFTRIAXONE 1 GM/50 ML (PMX) 50 ML IVPB SCH (17:05)
[2016-09-05] MEDS ORDERED: VANCOMYCIN 1 GM in NS 250 ML IVPB SCH (18:00)
[2016-09-05 19:51] VITALS: BP 136/64; RESP 19
== END 2016-09-05 22:51 | disposition home health service (06) | DRG 603 ==
LOC: E/R 01:47 → PP2 05:05
PROVIDERS: ADMIT Family Medicine; ATTEND Family Medicine
PROC: 02HV33Z Insertion of Infusion Device into Superior Vena Cava, Percutaneous Approach (ICD-10-PCS; principal; 2016-08-29)
PROC: B548ZZA Ultrasonography of Superior Vena Cava, Guidance (ICD-10-PCS; 2016-08-29)
DX: L03.115 Cellulitis of right lower limb (principal); E11.65 Type 2 diabetes mellitus with hyperglycemia; I10 Essential (primary) hypertension; I82.612 Acute embolism and thrombosis of superficial veins of left upper extremity; F17.200 Nicotine dependence, unspecified, uncomplicated; D50.9 Iron deficiency anemia, unspecified; Z71.6 Tobacco abuse counseling; M17.0 Bilateral primary osteoarthritis of knee
CPT/HCPCS: 36415; 36569; 71010; 76937; 80048; 80053; 80061; 80076; 80202; 81003; 82728; 82962; 83036; 83540; 83605; 83735; 84100; 84484; 84560; 85025; 85610; 85651; 85730; 86140; 87040; 93971; 96374; 96375; J0696; J1650; J1815; J1885; J2270; J2916; J2997; J3370; J7030; J7050

== ENCOUNTER 2016-09-14 13:28 | Outpatient (CLI) | payer MEDICAID ==
[~2016-09-14] VITALS: Ht 154.9 cm; Wt 68.6 kg
[~2016-09-14 13:28] MED LIST: CEFT1FRO2 IV; FER325 PO; LANT3I SC; LISI-313 PO; NOVO3I SC; VANC1.257 IV
[2016-09-14 14:03] VITALS: BP 136/63; PULSE 73; RESP 18; Ht 154.9 cm; Wt 68.6 kg
--- NOTE | 2016-09-14 15:00 | PN ---
Date/Time of Note Date/Time of Note DATE: 09/14/16 TIME: 14:56 Outpatient Progress Note Chief Complaint Cellulitis/diabetes/hypertension/anemia HPI Cellulitis/Patient was hospitalized, patient was treated with vancomycin, left knee, no fever or chill, still has redness of knee, and slight swelling, slight discomfort, no fever or chill, Diabetes/no polydipsia polyuria hypoglycemia, gastroparesis, blood sugar 170 to morning, Hypertension/no headache or dizziness, no lightheadedness, no local focal weakness, no impaired vision, Anemia/no hematemesis or melena, no bruising ecchymosis, no bleeding, Review of Systems Const: No Fever, no chills, no Wt. loss, no Fatigue, normal appetite, no diaphoresis. Eyes: No pain, no discharge, no redness, no visual change, no foreign body. ENT: No pain, no bleeding, no congestion, no sore throat, no dysphagia, no discharge or rhinitis. Lymph: No adenopathy, no tender nodes, no lymphedema. Resp: No SOB, no cough, no sputum, no wheezing, no chest pain CV:No chest pain, no palpitaions, no ARAUJO, no PND, no edema GI:Normal appetite, no pain, no nausea, no vomiting, no diarrhea, no blood, no constipation :No frequency, no urgency, no dysuria, no hematuria, no flank pain, no discharge, no bleeding Musc: no back pain, no neck pain, right knee pain slight knee swelling, and slight redness of right knee, no restricted ROM Skin:No rash, no skin lesions, no erythema, no laceration, no bruising, no pruritus Neuro:No BURTON, no dizziness, no syncope, no seizure, no focal-weakness Endo:No polyuria, no polydypsia, no dry-skin, no temp-intolerance Psych:No hallucinations, no depression, no anxiety, no suicidal ideation Ext:No edema, right knee pain, no ulcer, no weakness Physical Exam Vital Signs Date Time Temp Pulse Resp B/P Pulse Ox O2 Delivery O2 Flow Rate FiO2 09/14/16 14:03 98.4 73 18 136/63 95 Room Air General Appearance: A 71 year-old [male who appears well-developed, well- nourished, in no acute distress. HEENT: Head normocephalic, atraumatic. Pupils equal, round, reactive to light and accommodate. Sclerae are no jaundice. Nasal turbinates pink without erythema or nasal discharge. Mucous membranes pink and moist without lesions. Oropharynx clear without any exudate or discharge. NECK: Supple. Trachea midline, No thyromegaly, No cervical lymphadenopathy, No mass, No carotid bruits, No JVD, Carotid pulses 2+ bilaterally. PULMONARY: Clear to auscultaion bilaterally, No retractions, Chest expansion symmetric bilaterally, no rales, no ronchi, no dulness on percussion. CARDIAC: Normal SI and S2, Regular rate and rythm, no murmur, gallop, or rub. GASTROINTESTINAL: Abdomen is soft, non-tender, Non Rigid, No distention, Positive bowel sounds x4 quadrants, Liver normal. SKIN: Warm, dry, no rash, no bruise, no echmosis. Right knee swelling, slight swelling, redness, discomfort, EXTREMITIES: Bilateral lower extremities normal, no edema, patient has right knee swelling, tenderness, slight redness, no phlabitus, pulse palpable, no contracture. MUSCULOSKELETAL: Spine Normal, Non-tender, Normal range of motion, No swelling, no deformity, no clubbing, or cyanosis, the patient has no edema to bilateral lower extremities, dorsalis pedis pulses palpable bilaterally. NEUROLOGIC: The patient is awake, alert, oriented, responding to yes/no questions appropriately, moving all extremities, cranial nerve intact, normal strenght, normal power, normal coordination, normal gait. Allergies Coded Allergies: acetaminophen (Verified Allergy, Unknown, 08/25/16) PMH Diabetes/hypertension/anemia/cellulitis Social Hx Patient continues to smoke,/smoking cessation education done, No drinking, Family Hx Family history of diabetes, Assessment/Plan Impression Cellulitis right knee/diabetes/hypertension/anemia Plan Continue all medication, patient education done about diabetes and hypertension, Patient finished the vancomycin, patient still has redness and tenderness and swelling of the right knee, CBC CMP, Bactrim DS 1 twice a day 20 tablet To follow in the office in 7-10 days, Medications Home Meds Active Scripts Insulin Aspart* (Novolog Insulin Pen*) 100 Unit/Ml Soln, 5 UNIT SC WITH MEALS for 30 Days Prov:YARELIS ABRAMS 08/29/16 Insulin Glargine* (Lantus*) 100 Unit/Ml Soln, 20 UNIT SC QAM for 30 Days Prov:YARELIS ABRAMS 08/29/16 Ferrous Sulfate* (Ferrous Sulfate*) 325 Mg Tabec, 325 MG PO TID for 30 Days, TAB Prov:YARELIS ABRAMS 08/29/16 Lisinopril* (Lisinopril*) 5 Mg Tablet, 5 MG PO DAILY for 30 Days, TAB Prov:YARELIS ABRAMS 08/29/16 Discontinued Scripts Vancomycin/0.9 % Sod Chloride (Vanco 1.25 gm/250 ml-0.9% NaCl) 1.25 Gm/250 Ml Plast..bag, 1.25 GM IV TID for 14 Days Prov:YARELIS ABRAMS 08/29/16 Ceftriaxone Na/Dextrose,Iso (Ceftriaxone 1 gm Piggyback) 1 Gm/50 Ml Froz.piggy, 1 GM IV DAILY for 14 Days Prov:YARELIS ABRAMS 08/29/16 DAWSON EDWARDS MD Sep 14, 2016 15:00
== END 2016-09-14 16:41 | disposition home or self-care (01) ==
LOC: DCC 13:28
PROVIDERS: ATTEND Internal Medicine
DX: L03.115 Cellulitis of right lower limb (principal); E11.9 Type 2 diabetes mellitus without complications; I10 Essential (primary) hypertension; D64.9 Anemia, unspecified; F17.200 Nicotine dependence, unspecified, uncomplicated
CPT/HCPCS: G0463

== ENCOUNTER 2017-10-26 06:43 | Emergency (ER) | END 2017-10-26 08:20 | disposition home or self-care (01) ==

== ENCOUNTER 2018-08-21 07:30 | Emergency (ER) | END 2018-08-21 10:39 | disposition home or self-care (01) ==

== ENCOUNTER 2019-04-07 06:25 | Emergency (ER) | payer OTHER ==
[~2019-04-07] VITALS: Ht 162.6 cm; Wt 69.5 kg
[~2019-04-07 06:25] MED LIST changes: -CEFT1FRO2 IV; +CEPH-443 PO; +CYCL10TA7 PO; +IBUP-1542 PO; +IBUP-1561 PO; -VANC1.257 IV
[2019-04-07 06:30] VITALS: BP 184/84; PULSE 80; RESP 18; Ht 162.6 cm; Wt 69.5 kg
[2019-04-07] MEDS ORDERED: KETOROLAC 30 MG INJ IM STA (06:53)
--- NOTE | 2019-04-07 07:18 | ERD ---
ER Documentation Chief Complaint Chief Complaint back pain right buttocks area x4 days after falling HPI 73-year-old male presented to ED for back pain secondary to a fall that happened 4 days ago. Patient states he did not pass out but he simply just tripped and fell on his butt. The patient is alert oriented x4 reporting with stable vitals he rates the pain 8 out of 10 and states that he is been taking at home ibuprofen which has only helped a little bit. Patient states he has a past medical history of hypertension and diabetes. The patient denies any urinary r etention numbness or tingling down the anterior aspect of his legs or groin. Patient states he has had symptoms with back pain in the past but feels like he reaggravated with this fall. ROS All systems reviewed and are negative except as per history of present illness. Medications Home Meds Active Scripts Ibuprofen* (Motrin*) 600 Mg Tab, 600 MG PO Q6, #30 TAB Prov:SARAH ADLER PA-C 04/07/19 Cyclobenzaprine Hcl* (Cyclobenzaprine Hcl*) 10 Mg Tablet, 10 MG PO TID, #15 TAB Prov:SARAH ADLER PA-C 04/07/19 Ibuprofen* (Motrin*) 400 Mg Tab, 400 MG PO Q6, #30 TAB Prov:INEZ GAN PA-C 08/21/18 Cephalexin* (Keflex*) 500 Mg Capsule, 500 MG PO QID for 7 Days, CAP Prov:MELINA FERNANDO PA-C 10/26/17 Insulin Aspart* (Novolog Insulin Pen*) 100 Unit/Ml Soln, 5 UNIT SC WITH MEALS for 30 Days Prov:YARELIS ABRAMS NP 08/29/16 Insulin Glargine* (Lantus*) 100 Unit/Ml Soln, 20 UNIT SC QAM for 30 Days Prov:YARELIS ABRAMS NP 08/29/16 Ferrous Sulfate* (Ferrous Sulfate*) 325 Mg Tabec, 325 MG PO TID for 30 Days, TAB Prov:YARELIS ABRAMS NP 08/29/16 Lisinopril* (Lisinopril*) 5 Mg Tablet, 5 MG PO DAILY for 30 Days, TAB Prov:YARELIS ABRAMS NP 08/29/16 Allergies Allergies: Coded Allergies: acetaminophen (Verified Allergy, Unknown, 04/07/19) PMhx/Soc History of Surgery: No Anesthesia Reaction: No Hx Neurological Disorder: No Hx Respiratory Disorders: No Hx Cardiac Disorders: Yes (HTN) Hx Psychiatric Problems: No Hx Miscellaneous Medical Probl: Yes (ARTHRITIS) Hx Alcohol Use: No Hx Substance Use: No Hx Tobacco Use: Yes Smoking Status: Current some day smoker FmHx Family History: No diabetes, No coronary disease, No other Physical Exam Vitals Vital Signs Date Temp Pulse Resp B/P (MAP) Pulse Ox O2 O2 Flow FiO2 Time Delivery Rate 04/07/19 97.6 80 18 184/84 96 06:30 (117) Physical Exam GENERAL: Mild distress HEENT: Atraumatic. Conjunctivae are pink. Pupils equal, round, and reactive to light. There is no scleral icterus. Tympanic membranes clear bilaterally. Oropharynx clear. No nystagmus or photophobia. NECK: C-spine is soft and supple. There is no meningismus. There is no cervical lymphadenopathy. CHEST: Clear to auscultation bilaterally. There are no rales, wheezes or rhonchi. HEART: Regular rate and rhythm. No murmurs, clicks, rubs or gallops. ABDOMEN:Soft, nontender and nondistended. Good bowel sounds. No rebound or guarding. No gross peritonitis. No gross organomegaly or masses. No Nicole sign or McBurney point tenderness. BACK: Muscle spasm right paraspinal muscles, straight leg raise aggravates symptoms and provokes sciatica EXTREMITIES: Equal pulses bilaterally. There is no peripheral clubbing, cyanosis or edema. No focal swelling or erythema. Full range of motion. Gross ly neurovascularly intact. NEUROLOGIC: Alert and oriented. Cranial nerves II through VII intact. Motor strength in all 4 extremities with 5 out of 5 strength. Sensation grossly intact. Normal speech and gait. Results 24 hrs Current Medications Medications Dose Sig/Lesia Start Time Status Last (Trade) Ordered Route PRN Stop Time Admin Dose Reason Admin Ketorolac 30 mg ONCE STAT 04/07/19 DC 04/07/19 Tromethamine IM 06:53 07:01 (Toradol) 04/07/19 06:57 Procedures/MDM ED course: The patient was stable throughout the ED course. The patient and/or family informed of laboratory and diagnostic imaging results throughout the ED course. Medications given in ER: Toradol Patient tolerated medication well with no adverse reactions. Patient reported improvement in pain. Medical decision making: This 73-year-old male presented to ED for back pain secondary to a fall that happened 4 days ago. Patient states he did not pass out but he he tripped and landed on his butt. Patient states the pain is been about an 8 out of 10 and has been consistent since the initial injury. Patient denies any worsening symptoms denies any urinary retention denies any abdominal pain denies any chest pain shortness of breath or sensation as if he is going to pass out. Patient has a history of high blood pressure and is presenting to the ED with an elevated BP. Patient states that that is normally what his pressure runs and he is currently being treated with medication and has a appointment with his primary care doctor this week. The patient denies any recent weight loss nausea vomiting chest pain or shortness of breath. Physical exam revealed muscle spasms the right paraspinal muscles and straight leg raise provoked sciatica on the right side. At this time I have low suspicion for TX, AAA, pyelonephritis epidural abscess, psoas abscess, cauda equina syndrome, spinal column dislocation or fracture. Patient was given Toradol in the ED and upon reev aluation the patient appears to be doing much better. He will be sent home with a prescription for Motrin and cyclobenzaprine with instructions to follow-up with his primary care provider in 1 to 2 days. Advised the patient if symptoms worsen return to ER immediately. Patient is in agreement treatment plan all questions were answered upon discharge Prescription for home: Cyclobenzaprine Motrin I have discussed with the patient proper use and common side effects to expert with the medication . I advised the patient/family to speak with the pharmacist dispensing the medication to be advised of any potential drug interactions with other medication or supplements they may be taking. Discharge: At this time, patient is stable for discharge and outpatient management. I have instructed the patient to follow-up with his\her primary care physician in 1 to 2 days. I have discussed with the patient the possibility of needing to see a specialist for further work-up and imaging studies if symptoms persist. I have instructed the patient to promptly return to the ER for any new or worsening symptoms including increased pain, fever, nausea, vomiting, weakness or LOC. The patient and\or family expressed understanding of and agreement with this plan. All questions were answered. Home care instructions were provided. Disclaimer: Inadvertent spelling and grammatical errors are likely due to EHR\dictation software use and do not reflect on the overall quality of patient care. Also, please note that the electronic time recorded on the note does not necessarily reflect the actual time of the patient encounter. Departure Diagnosis: Primary Impression: Back pain Back pain location: low back pain Chronicity: acute Back pain laterality: right Sciatica presence: with sciatica Sciatica laterality: sciatica of right side Qualified Codes: M54.41 - Lumbago with sciatica, right side Additional Impression: Back spasm Condition: Stable Patient Instructions: Back Pain (Acute Or Chronic), Back Pain W/ Sciatica Referrals: [facility] YOU HAVE RECEIVED A MEDICAL SCREENING EXAM AND THE RESULTS INDICATE THAT YOU DO NOT HAVE A CONDITION THAT REQUIRES URGENT TREATMENT IN THE EMERGENCY DEPARTMENT. FURTHER EVALUATION AND TREATMENT OF YOUR CONDITION CAN WAIT UNTIL YOU ARE SEEN IN YOUR DOCTORS OFFICE WITHIN THE NEXT 1-2 DAYS. IT IS YOUR RESPONSIBILITY TO MAKE AN APPOINTMENT FOR FOLOW-UP CARE. IF YOU HAVE A PRIMARY DOCTOR --you should call your primary doctor and schedule an appointment IF YOU DO NOT HAVE A PRIMARY DOCTOR YOU CAN CALL OUR PHYSICIAN REFERRAL HOTLINE AT IF YOU CAN NOT AFFORD TO SEE A PHYSICIAN YOU CAN CHOSE FROM THE FOLLOWING [facility] [address] [facility] [facility] [address] [facility]. [facility] [address] [facility] [address] [facility] [address] [facility]. [facility]. [address] [facility]. [facility] YOU HAVE RECEIVED A MEDICAL SCREENING EXAM AND THE RESULTS INDICATE THAT YOU DO NOT HAVE A CONDITION THAT REQUIRES URGENT TREATMENT IN THE EMERGENCY DEPARTMENT. FURTHER EVALUATION AND TREATMENT OF YOUR CONDITION CAN WAIT UNTIL YOU ARE SEEN IN YOUR DOCTORS OFFICE WITHIN THE NEXT 1-2 DAYS. IT IS YOUR RESPONSIBILITY TO MAKE AN APPOINTMENT FOR FOLOW-UP CARE. IF YOU HAVE A PRIMARY DOCTOR --you should call your primary doctor and schedule and appointment IF YOU DO NOT HAVE A PRIMARY DOCTOR YOU CAN CALL OUR PHYSICIAN REFERRAL HOTLINE AT . IF YOU CAN NOT AFFORD TO SEE A PHYSICIAN YOU CAN CHOSE FROM THE FOLLOWING [facility] INSTITUTIONS: [facility] [address] [place] [address] [facility] [address] [place] [address] [facility] [address] [place] [address] Additional Instructions: Call your primary care doctor TOMORROW for an appointment during the next 1-2 da ys.See the doctor sooner or return here if your condition worsens before your appointment time. SARAH ADLER PA-C Apr 07, 2019 07:18
== END 2019-04-07 07:22 | disposition home or self-care (01) ==
LOC: FTE 06:25
DX: M54.41 Lumbago with sciatica, right side (principal); M62.830 Muscle spasm of back; I10 Essential (primary) hypertension; F17.210 Nicotine dependence, cigarettes, uncomplicated; E11.9 Type 2 diabetes mellitus without complications; Z79.4 Long term (current) use of insulin
CPT/HCPCS: 96372; J1885; Z7502

== ENCOUNTER 2019-04-25 07:53 | Emergency (ER) | payer OTHER ==
[~2019-04-25] VITALS: Ht 149.9 cm; Wt 68.0 kg
[~2019-04-25 07:53] MED LIST changes: +METH500T PO
[2019-04-25 07:54] VITALS: BP 167/75; PULSE 81; RESP 18; Ht 149.9 cm; Wt 68.0 kg
[2019-04-25] MEDS ORDERED: METHOCARBAMOL 750 MG TAB PO ONE (08:30)
[2019-04-25] MEDS ORDERED: IBUPROFEN 600 MG TAB PO ONE (08:30)
[2019-04-25] MEDS ORDERED: METHOCARBAMOL 500 MG TAB PO ONE (08:30)
== END 2019-04-25 09:25 | disposition home or self-care (01) ==
LOC: FTE 07:53
DX: M54.5 Low back pain (principal); I10 Essential (primary) hypertension; E11.9 Type 2 diabetes mellitus without complications; Z79.4 Long term (current) use of insulin; Z87.891 Personal history of nicotine dependence
CPT/HCPCS: 72100; Z7502; Z7610